=== PATIENT | female | born 1950 | race Caucasian/White ===

== ENCOUNTER 2017-11-15 09:40 | Day surgery (SDC) | payer MEDICARE ==
[2017-11-15 10:54] LABS: ADD MAN DIFF? NO
[2017-11-15 10:57] LABS: BASOPHILS % 0.4 % (0.0-2.0); EOSINOPHILS # 0.4 10^3/ul (0.0-0.5); EOSINOPHILS % 3.7 % (0.0-7.0); HEMATOCRIT 31.9 % (37.0-47.0); HEMOGLOBIN 10.1 g/dl (12.0-16.0); LYMPHOCYTES # 2.3 10^3/ul (0.8-2.9); MEAN CORPUSCULAR HEMOGLOBIN 28.6 pg (29.0-33.0); MEAN CORPUSCULAR HGB CONC 31.7 g/dl (32.0-37.0); MEAN CORPUSCULAR VOLUME 90.4 fl (82.0-101.0); MEAN PLATELET VOLUME 9.7 fl (7.4-10.4); MONOCYTE # 0.6 10^3/ul (0.3-0.9); MONOCYTES % 5.9 % (0.0-11.0); NEUTROPHIL # 6.6 10^3/ul (1.6-7.5); NEUTROPHILS % 66.8 % (39.0-77.0); PLATELET COUNT 396 10^3/UL (140-415); RED BLOOD COUNT 3.53 10^6/ul (4.20-5.40); RED CELL DISTRIBUTION WIDTH 17.3 % (11.5-14.5)
[2017-11-15 10:57] LABS: WHITE BLOOD COUNT 9.9 10^3/ul (4.8-10.8)
[2017-11-15 11:27] LABS: ALANINE AMINOTRANSFERASE 40 IU/L (13-69); ALBUMIN 4.1 g/dl (3.3-4.9); ALBUMIN/GLOBULIN RATIO 1.07; ALKALINE PHOSPHATASE 105 IU/L (42-121); ANION GAP 17 (8-16); ASPARTATE AMINO TRANSFERASE 27 IU/L (15-46); CARBON DIOXIDE 22 mmol/L (21-31); CHLORIDE 107 mmol/L (97-110); GLUCOSE 91 mg/dl (70-220); TOTAL PROTEIN 7.9 g/dl (6.1-8.1)
[2017-11-15 11:30] LABS: BLOOD UREA NITROGEN 21 mg/dl (7-20); CREATININE 1.57 mg/dl (0.44-1.00); INR 1.73; POTASSIUM 5.3 mmol/L (3.5-5.1); PROTIME 20.6 Sec (11.9-14.9); PT RATIO 1.6; SODIUM 141 mmol/L (135-144)
[2017-11-15 11:31] LABS: PARTIAL THROMBOPLASTIN TIME 34.5 Sec (25.0-35.0)
[2017-11-15] MEDS ORDERED: ETOMIDATE 20 MG INJ (11:41)
[2017-11-15] MEDS ORDERED: LIDOCAINE 100 MG SYRINGE (11:41)
[2017-11-15] MEDS ORDERED: DIPHENHYDRAMINE 50 MG INJ (11:42)
[2017-11-15] MEDS ORDERED: MIDAZOLAM 1 MG/ML 2 ML INJ (11:42)
[2017-11-15] MEDS ORDERED: FENTAnyl 50 MCG/ML VIAL (11:42)
[2017-11-15] MEDS ORDERED: HEPARIN 1000 UNITS/ML 10 ML INJ (11:42)
[2017-11-15] MEDS ORDERED: METHYLPREDNISOLONE 125 MG INJ (11:43)
== END 2017-11-15 12:00 | disposition home or self-care (01) ==
LOC: SDS 09:40
DX: L97.519 Non-pressure chronic ulcer of other part of right foot with unspecified severity (principal); Z53.9 Procedure and treatment not carried out, unspecified reason
CPT/HCPCS: 80053; 82962; 85025; 85610; 85730

== ENCOUNTER 2017-11-22 06:01 | Day surgery (SDC) | payer MEDICARE ==
[2017-11-22 06:49] LABS: ADD MAN DIFF? NO
[2017-11-22 06:56] LABS: BASOPHILS % 0.2 % (0.0-2.0); HEMATOCRIT 31.9 % (37.0-47.0); HEMOGLOBIN 9.9 g/dl (12.0-16.0); LYMPHOCYTES # 1.7 10^3/ul (0.8-2.9); MEAN CORPUSCULAR HEMOGLOBIN 28.5 pg (29.0-33.0); MEAN CORPUSCULAR VOLUME 91.9 fl (82.0-101.0); MEAN PLATELET VOLUME 9.6 fl (7.4-10.4); MONOCYTE # 0.1 10^3/ul (0.3-0.9); NEUTROPHIL # 9.6 10^3/ul (1.6-7.5); NEUTROPHILS % 83.2 % (39.0-77.0); PLATELET COUNT 402 10^3/UL (140-415); RED BLOOD COUNT 3.47 10^6/ul (4.20-5.40); RED CELL DISTRIBUTION WIDTH 17.4 % (11.5-14.5)
[2017-11-22] MEDS ORDERED: DIPHENHYDRAMINE 50 MG CAP PO (07:00)
[2017-11-22] MEDS ORDERED: predniSONE 50 MG TAB PO (07:00)
[2017-11-22 07:14] LABS: HOLD TRANSMISSIONS 1; INR 1.07; PT RATIO 1.1
[2017-11-22 07:17] LABS: WHITE BLOOD COUNT 11.5 10^3/ul (4.8-10.8)
[2017-11-22 07:18] LABS: ALANINE AMINOTRANSFERASE 30 IU/L (13-69); ALBUMIN 3.9 g/dl (3.3-4.9); ALBUMIN/GLOBULIN RATIO 0.95; ALKALINE PHOSPHATASE 99 IU/L (42-121); ANION GAP 20 (8-16); ASPARTATE AMINO TRANSFERASE 29 IU/L (15-46); CARBON DIOXIDE 19 mmol/L (21-31); CHLORIDE 105 mmol/L (97-110); GLUCOSE 236 mg/dl (70-220)
[2017-11-22] MEDS ORDERED: HYDROCORTISONE 100 MG INJ ×2 (07:23)
[2017-11-22 07:34] LABS: BLOOD UREA NITROGEN 32 mg/dl (7-20); POTASSIUM 5.7 mmol/L (3.5-5.1); SODIUM 138 mmol/L (135-144)
[2017-11-22] MEDS ORDERED: MIDAZOLAM 1 MG/ML 2 ML INJ (07:39)
[2017-11-22] MEDS ORDERED: LIDOCAINE 1% (MDV) 20 ML INJ (07:39)
[2017-11-22] MEDS ORDERED: FENTAnyl 50 MCG/ML VIAL (07:39)
[2017-11-22] MEDS ORDERED: IODIXANOL LOCM 100 ML BTL (07:39)
== END 2017-11-22 13:00 | disposition home or self-care (01) ==
LOC: CCL 06:01 → SDS 06:01 → CCL 13:00
DX: L97.419 Non-pressure chronic ulcer of right heel and midfoot with unspecified severity (principal); E11.9 Type 2 diabetes mellitus without complications; I73.9 Peripheral vascular disease, unspecified
CPT/HCPCS: 36200; 75630; 76937; 80053; 82962; 85025; 85610; 85730

== ENCOUNTER 2017-12-25 14:16 | Inpatient (IN) | payer MEDICARE, MEDICAID ==
[2017-12-26] MEDS: SOD CHLORIDE 0.9% 500 ML IV (02:14)
[2017-12-26 02:29] LABS: ADD MAN DIFF? NO
[2017-12-26 02:32] LABS: WHITE BLOOD COUNT 7.3 10^3/ul (4.8-10.8)
[2017-12-26 02:32] LABS: BASOPHILS % 0.4 % (0.0-2.0); EOSINOPHILS # 0.4 10^3/ul (0.0-0.5); EOSINOPHILS % 4.9 % (0.0-7.0); HEMATOCRIT 30.5 % (37.0-47.0); HEMOGLOBIN 9.8 g/dl (12.0-16.0); LYMPHOCYTES # 2.4 10^3/ul (0.8-2.9); LYMPHOCYTES % 33.3 % (15.0-51.0); MEAN CORPUSCULAR HEMOGLOBIN 28.9 pg (29.0-33.0); MEAN CORPUSCULAR HGB CONC 32.1 g/dl (32.0-37.0); MEAN PLATELET VOLUME 10.6 fl (7.4-10.4); MONOCYTE # 0.7 10^3/ul (0.3-0.9); MONOCYTES % 9.7 % (0.0-11.0); NEUTROPHIL # 3.8 10^3/ul (1.6-7.5); NEUTROPHILS % 51.3 % (39.0-77.0); PLATELET COUNT 333 10^3/UL (140-415); RED BLOOD COUNT 3.39 10^6/ul (4.20-5.40); RED CELL DISTRIBUTION WIDTH 16.5 % (11.5-14.5)
[2017-12-26 02:50] LABS: ANION GAP 14 (8-16); BLOOD UREA NITROGEN 30 mg/dl (7-20); CALCIUM 9.9 mg/dl (8.4-10.2); CARBON DIOXIDE 31 mmol/L (21-31); CHLORIDE 104 mmol/L (97-110); CREATININE 1.56 mg/dl (0.44-1.00); GLUCOSE 144 mg/dl (70-220); POTASSIUM 4.4 mmol/L (3.5-5.1); SODIUM 145 mmol/L (135-144)
[2017-12-26 03:48] LABS: INR 1.52; PROTIME 18.6 Sec (11.9-14.9); PT RATIO 1.5
[2017-12-26 03:49] LABS: PARTIAL THROMBOPLASTIN TIME 41.1 Sec (25.0-35.0)
[2017-12-26] MEDS ORDERED: GLUCOSE GEL 15 GRAM TUBE BUCCAL (05:30)
[2017-12-26] MEDS ORDERED: ONDANSETRON 4 MG TAB PO (05:30)
[2017-12-26] MEDS ORDERED: BISACODYL (EC) 5 MG TAB PO (05:30)
[2017-12-26] MEDS ORDERED: DOCUSATE SODIUM 100 MG CAP PO (05:30)
[2017-12-26] MEDS ORDERED: NACL 0.9% 3 ML SYG IV (05:30)
[2017-12-26] MEDS ORDERED: GLUCAGON 1 MG INJ IM (05:30)
[2017-12-26] MEDS ORDERED: GLUCOSE GEL 15 GRAM TUBE PO ×2 (05:30)
[2017-12-26] MEDS ORDERED: DEXTROSE 50% 50 ML SYRINGE IV ×2 (05:30)
[2017-12-26 06:40] LABS: INR 1.56; PT RATIO 1.5
[2017-12-26] MEDS: LEVOTHYROXINE 25 MCG TAB PO (09:42)
[2017-12-26] MEDS: CITALOPRAM 20 MG TAB PO (09:42)
[2017-12-26] MEDS: NIFEdipine (XL) 60 MG TAB PO (09:43)
[2017-12-26] MEDS: METOPROLOL 25 MG TAB PO ×2 (09:43→20:53)
[2017-12-26] MEDS: HYDROCHLOROTHIAZIDE 25 MG TAB PO (09:43)
[2017-12-26] MEDS ORDERED: VANCOMYCIN IV PER PHARMACY XX (10:30)
[2017-12-26] MEDS: INSULIN ASPART [NOVOLOG] 3 ML PEN SC ×3 (12:06→20:55)
[2017-12-26] MEDS: VANCOMYCIN 2 GM in SOD CHLORIDE 0.9% 500 ML IVPB (13:53)
[2017-12-26] MEDS: ATORVASTATIN 80 MG TAB PO (20:53)
[2017-12-26] MEDS: INSULIN GLARGINE [LANtus] 3 ML PEN SC (20:54)
[2017-12-27] MEDS: ACCU-CHEK XX (01:30)
[2017-12-27 06:11] LABS: ADD MAN DIFF? NO
[2017-12-27 06:20] LABS: BASOPHILS % 0.5 % (0.0-2.0); EOSINOPHILS # 0.4 10^3/ul (0.0-0.5); EOSINOPHILS % 5.7 % (0.0-7.0); HEMATOCRIT 29.2 % (37.0-47.0); HEMOGLOBIN 9.4 g/dl (12.0-16.0); LYMPHOCYTES # 2.2 10^3/ul (0.8-2.9); LYMPHOCYTES % 36.1 % (15.0-51.0); MEAN CORPUSCULAR HEMOGLOBIN 28.9 pg (29.0-33.0); MEAN CORPUSCULAR HGB CONC 32.2 g/dl (32.0-37.0); MEAN CORPUSCULAR VOLUME 89.8 fl (82.0-101.0); MEAN PLATELET VOLUME 10.2 fl (7.4-10.4); MONOCYTE # 0.6 10^3/ul (0.3-0.9); NEUTROPHILS % 48.2 % (39.0-77.0); NUCLEATED RED BLOOD CELLS% 0.7 /100WBC (0.0-0.0); PLATELET COUNT 309 10^3/UL (140-415); RED BLOOD COUNT 3.25 10^6/ul (4.20-5.40)
[2017-12-27 06:20] LABS: WHITE BLOOD COUNT 6.1 10^3/ul (4.8-10.8)
[2017-12-27 06:43] LABS: INR 1.36; PT RATIO 1.3
[2017-12-27 06:46] LABS: ALANINE AMINOTRANSFERASE 25 IU/L (13-69); ALBUMIN 3.2 g/dl (3.3-4.9); ALBUMIN/GLOBULIN RATIO 0.96; ALKALINE PHOSPHATASE 70 IU/L (42-121); ANION GAP 10 (8-16); ASPARTATE AMINO TRANSFERASE 27 IU/L (15-46); BLOOD UREA NITROGEN 24 mg/dl (7-20); CALCIUM 9.1 mg/dl (8.4-10.2); CARBON DIOXIDE 30 mmol/L (21-31); CHLORIDE 106 mmol/L (97-110); CHOL/HDL RATIO 3.5 RATIO; CHOLESTEROL 133 mg/dl (100-200); CREATININE 1.07 mg/dl (0.44-1.00); GLUCOSE 124 mg/dl (70-220); HDL CHOLESTEROL 38 mg/dl (35-98); LDL CHOLESTEROL,CALCULATED 81 mg/dl; MAGNESIUM 1.7 mg/dl (1.7-2.5); POTASSIUM 4.1 mmol/L (3.5-5.1); SODIUM 142 mmol/L (135-144); TOTAL PROTEIN 6.5 g/dl (6.1-8.1); TRIGLYCERIDES 68 mg/dl (0-149)
[2017-12-27] MEDS: LEVOTHYROXINE 25 MCG TAB PO (06:49)
[2017-12-27 07:39] LABS: HEMOGLOBIN A1C 7.1 % (0-5.9)
[2017-12-27] MEDS: METOPROLOL 25 MG TAB PO ×2 (08:13→20:55)
[2017-12-27] MEDS: NIFEdipine (XL) 60 MG TAB PO (08:13)
[2017-12-27] MEDS: HYDROCHLOROTHIAZIDE 25 MG TAB PO (08:13)
[2017-12-27] MEDS: CITALOPRAM 20 MG TAB PO (08:13)
[2017-12-27] MEDS: INSULIN ASPART [NOVOLOG] 3 ML PEN SC ×4 (08:17→20:56)
[2017-12-27] MEDS: VANCOMYCIN 1.5 GM in SOD CHLORIDE 0.9% 250 ML IVPB (12:05)
[2017-12-27] MEDS: ATORVASTATIN 80 MG TAB PO (20:55)
[2017-12-27] MEDS: INSULIN GLARGINE [LANtus] 3 ML PEN SC (20:57)
[2017-12-27] MEDS: MEROPENEM 500MG/50 ML (PMX) 50 ML IVPB (20:57)
[2017-12-28] MEDS: ACCU-CHEK XX (02:00)
[2017-12-28 06:06] LABS: ADD MAN DIFF? NO
[2017-12-28 06:10] LABS: BASOPHILS % 0.4 % (0.0-2.0); EOSINOPHILS # 0.4 10^3/ul (0.0-0.5); EOSINOPHILS % 4.9 % (0.0-7.0); HEMATOCRIT 30.6 % (37.0-47.0); HEMOGLOBIN 9.8 g/dl (12.0-16.0); LYMPHOCYTES # 2.4 10^3/ul (0.8-2.9); LYMPHOCYTES % 34.3 % (15.0-51.0); MEAN CORPUSCULAR HEMOGLOBIN 28.7 pg (29.0-33.0); MEAN CORPUSCULAR VOLUME 89.7 fl (82.0-101.0); MEAN PLATELET VOLUME 10.2 fl (7.4-10.4); MONOCYTE # 0.6 10^3/ul (0.3-0.9); MONOCYTES % 8.7 % (0.0-11.0); NEUTROPHIL # 3.6 10^3/ul (1.6-7.5); NEUTROPHILS % 51.4 % (39.0-77.0); PLATELET COUNT 346 10^3/UL (140-415); RED BLOOD COUNT 3.41 10^6/ul (4.20-5.40); RED CELL DISTRIBUTION WIDTH 16.1 % (11.5-14.5)
[2017-12-28 06:10] LABS: WHITE BLOOD COUNT 7.1 10^3/ul (4.8-10.8)
[2017-12-28 06:43] LABS: INR 1.12; PROTIME 14.6 Sec (11.9-14.9); PT RATIO 1.1
[2017-12-28] MEDS: LEVOTHYROXINE 25 MCG TAB PO (07:08)
[2017-12-28 07:12] LABS: ANION GAP 14 (8-16); BLOOD UREA NITROGEN 26 mg/dl (7-20); CARBON DIOXIDE 28 mmol/L (21-31); CHLORIDE 105 mmol/L (97-110); CREATININE 1.17 mg/dl (0.44-1.00); GLUCOSE 139 mg/dl (70-220); POTASSIUM 4.1 mmol/L (3.5-5.1); SODIUM 143 mmol/L (135-144)
[2017-12-28] MEDS: HYDROCHLOROTHIAZIDE 25 MG TAB PO (08:14)
[2017-12-28] MEDS: CITALOPRAM 20 MG TAB PO (08:14)
[2017-12-28] MEDS: MEROPENEM 500MG/50 ML (PMX) 50 ML IVPB ×2 (08:14→20:37)
[2017-12-28] MEDS: LOSARTAN 50 MG TAB PO (08:15)
[2017-12-28] MEDS: NIFEdipine (XL) 30 MG TAB PO (08:15)
[2017-12-28] MEDS: METOPROLOL 25 MG TAB PO ×2 (08:15→20:38)
[2017-12-28] MEDS: INSULIN ASPART [NOVOLOG] 3 ML PEN SC ×4 (08:21→20:40)
[2017-12-28] MEDS: VANCOMYCIN 1.5 GM in SOD CHLORIDE 0.9% 250 ML IVPB (14:11)
[2017-12-28] MEDS: DIPHENHYDRAMINE 25 MG CAP PO (15:04)
[2017-12-28] MEDS ORDERED: VITAMIN A & D 5 GM OINT PACKET TOP (18:26)
[2017-12-28] MEDS: ATORVASTATIN 80 MG TAB PO (20:37)
[2017-12-28] MEDS: INSULIN GLARGINE [LANtus] 3 ML PEN SC (20:40)
[2017-12-28] MEDS: DIPHENHYDRAMINE 50 MG CAP PO (21:01)
[2017-12-29] MEDS: ACCU-CHEK XX (03:00)
[2017-12-29] MEDS: LEVOTHYROXINE 100 MCG TAB PO (06:11)
[2017-12-29 06:12] LABS: ADD MAN DIFF? NO
[2017-12-29 06:19] LABS: BASOPHILS % 0.5 % (0.0-2.0); EOSINOPHILS # 0.4 10^3/ul (0.0-0.5); HEMATOCRIT 29.4 % (37.0-47.0); HEMOGLOBIN 9.4 g/dl (12.0-16.0); LYMPHOCYTES # 2.1 10^3/ul (0.8-2.9); LYMPHOCYTES % 34.2 % (15.0-51.0); MEAN CORPUSCULAR HEMOGLOBIN 28.7 pg (29.0-33.0); MEAN CORPUSCULAR VOLUME 89.9 fl (82.0-101.0); MEAN PLATELET VOLUME 10.1 fl (7.4-10.4); MONOCYTE # 0.7 10^3/ul (0.3-0.9); MONOCYTES % 10.8 % (0.0-11.0); NEUTROPHIL # 2.9 10^3/ul (1.6-7.5); NEUTROPHILS % 47.8 % (39.0-77.0); PLATELET COUNT 340 10^3/UL (140-415); RED BLOOD COUNT 3.27 10^6/ul (4.20-5.40)
[2017-12-29 06:43] LABS: ANION GAP 10 (8-16); BLOOD UREA NITROGEN 32 mg/dl (7-20); CALCIUM 8.7 mg/dl (8.4-10.2); CARBON DIOXIDE 30 mmol/L (21-31); CHLORIDE 105 mmol/L (97-110); CREATININE 1.23 mg/dl (0.44-1.00); GLUCOSE 146 mg/dl (70-220); POTASSIUM 4.2 mmol/L (3.5-5.1); SODIUM 141 mmol/L (135-144)
[2017-12-29 07:07] LABS: INR 1.02; PROTIME 13.5 Sec (11.9-14.9); PT RATIO 1.1
[2017-12-29] MEDS: MEROPENEM 500MG/50 ML (PMX) 50 ML IVPB ×2 (07:58→21:03)
[2017-12-29] MEDS: INSULIN ASPART [NOVOLOG] 3 ML PEN SC ×4 (07:58→21:02)
[2017-12-29] MEDS: HYDROCHLOROTHIAZIDE 25 MG TAB PO (07:59)
[2017-12-29] MEDS: LOSARTAN 50 MG TAB PO ×2 (07:59→20:58)
[2017-12-29] MEDS: NIFEdipine (XL) 30 MG TAB PO (07:59)
[2017-12-29] MEDS: CITALOPRAM 20 MG TAB PO (08:00)
[2017-12-29] MEDS: METOPROLOL 25 MG TAB PO ×2 (08:00→20:58)
[2017-12-29] MEDS: LACTATED RINGER'S 500 ML IV (11:59)
[2017-12-29 12:24] LABS: IRON 41 ug/dl (35-150)
[2017-12-29 12:33] LABS: % IRON SATURATION 13 % SAT (22-52); TOTAL IRON BINDING CAPACITY 328 ug/dl (241-421)
[2017-12-29 12:34] LABS: VANCOMYCIN,TROUGH 15.7 ug/ml (10.0-20.0)
[2017-12-29 13:05] LABS: FERRITIN 12.9 ng/ml (11.1-264.0)
[2017-12-29] MEDS: VANCOMYCIN 1.5 GM in SOD CHLORIDE 0.9% 250 ML IVPB (14:04)
[2017-12-29] MEDS: metFORMIN 500 MG TAB PO (17:29)
[2017-12-29] MEDS: ATORVASTATIN 80 MG TAB PO (20:57)
[2017-12-29] MEDS: INSULIN GLARGINE [LANtus] 3 ML PEN SC (21:03)
[2017-12-30] MEDS: DIPHENHYDRAMINE 50 MG CAP PO (01:37)
[2017-12-30] MEDS: ACCU-CHEK XX (01:37)
[2017-12-30 05:36] LABS: ADD MAN DIFF? NO
[2017-12-30 05:39] LABS: WHITE BLOOD COUNT 6.1 10^3/ul (4.8-10.8)
[2017-12-30 05:39] LABS: BASOPHILS % 0.5 % (0.0-2.0); EOSINOPHILS # 0.3 10^3/ul (0.0-0.5); EOSINOPHILS % 5.1 % (0.0-7.0); HEMATOCRIT 29.9 % (37.0-47.0); HEMOGLOBIN 9.6 g/dl (12.0-16.0); LYMPHOCYTES # 2.1 10^3/ul (0.8-2.9); LYMPHOCYTES % 34.3 % (15.0-51.0); MEAN CORPUSCULAR HEMOGLOBIN 28.7 pg (29.0-33.0); MEAN CORPUSCULAR HGB CONC 32.1 g/dl (32.0-37.0); MEAN CORPUSCULAR VOLUME 89.5 fl (82.0-101.0); MEAN PLATELET VOLUME 9.7 fl (7.4-10.4); MONOCYTE # 0.8 10^3/ul (0.3-0.9); MONOCYTES % 13.4 % (0.0-11.0); NEUTROPHIL # 2.8 10^3/ul (1.6-7.5); NEUTROPHILS % 46.4 % (39.0-77.0); PLATELET COUNT 328 10^3/UL (140-415); RED BLOOD COUNT 3.34 10^6/ul (4.20-5.40); RED CELL DISTRIBUTION WIDTH 15.9 % (11.5-14.5)
[2017-12-30 05:57] LABS: INR 0.93; PROTIME 12.6 Sec (11.9-14.9)
[2017-12-30 06:09] LABS: ANION GAP 13 (8-16); BLOOD UREA NITROGEN 28 mg/dl (7-20); CALCIUM 8.8 mg/dl (8.4-10.2); CARBON DIOXIDE 30 mmol/L (21-31); CHLORIDE 106 mmol/L (97-110); CREATININE 1.12 mg/dl (0.44-1.00); GLUCOSE 87 mg/dl (70-220); POTASSIUM 3.8 mmol/L (3.5-5.1); SODIUM 145 mmol/L (135-144)
[2017-12-30] MEDS: LEVOTHYROXINE 100 MCG TAB PO (06:38)
[2017-12-30] MEDS: HYDROCODONE/APAP (5/325) TAB PO ×2 (06:39→12:28)
[2017-12-30] MEDS: INSULIN ASPART [NOVOLOG] 3 ML PEN SC ×4 (08:07→20:39)
[2017-12-30] MEDS: MEROPENEM 500MG/50 ML (PMX) 50 ML IVPB ×2 (08:08→20:34)
[2017-12-30] MEDS: METOPROLOL 25 MG TAB PO ×2 (08:09→20:40)
[2017-12-30] MEDS: HYDROCHLOROTHIAZIDE 12.5 MG CAP PO (08:11)
[2017-12-30] MEDS: CITALOPRAM 20 MG TAB PO (08:11)
[2017-12-30] MEDS: LOSARTAN 50 MG TAB PO ×2 (08:11→20:40)
[2017-12-30] MEDS: VANCOMYCIN 1.5 GM in SOD CHLORIDE 0.9% 250 ML IVPB (12:56)
[2017-12-30] MEDS: metFORMIN 500 MG TAB PO (17:33)
[2017-12-30] MEDS: INSULIN GLARGINE [LANtus] 3 ML PEN SC (20:39)
[2017-12-30] MEDS: ATORVASTATIN 80 MG TAB PO (20:40)
[2017-12-31] MEDS: ACCU-CHEK XX (01:40)
[2017-12-31] MEDS: ACETAMINOPHEN 325 MG TAB PO (01:48)
[2017-12-31] MEDS: hydrALAzine 20 MG INJ IV (02:04)
[2017-12-31 05:39] LABS: ADD MAN DIFF? NO
[2017-12-31 05:43] LABS: BASOPHILS % 0.2 % (0.0-2.0); EOSINOPHILS # 0.3 10^3/ul (0.0-0.5); EOSINOPHILS % 4.8 % (0.0-7.0); HEMATOCRIT 28.8 % (37.0-47.0); HEMOGLOBIN 9.3 g/dl (12.0-16.0); LYMPHOCYTES # 1.3 10^3/ul (0.8-2.9); LYMPHOCYTES % 24.6 % (15.0-51.0); MEAN CORPUSCULAR HEMOGLOBIN 28.7 pg (29.0-33.0); MEAN CORPUSCULAR HGB CONC 32.3 g/dl (32.0-37.0); MEAN CORPUSCULAR VOLUME 88.9 fl (82.0-101.0); MEAN PLATELET VOLUME 10.1 fl (7.4-10.4); MONOCYTE # 0.7 10^3/ul (0.3-0.9); MONOCYTES % 13.6 % (0.0-11.0); NEUTROPHILS % 56.6 % (39.0-77.0); PLATELET COUNT 312 10^3/UL (140-415); RED BLOOD COUNT 3.24 10^6/ul (4.20-5.40); RED CELL DISTRIBUTION WIDTH 16.1 % (11.5-14.5)
[2017-12-31 05:43] LABS: WHITE BLOOD COUNT 5.4 10^3/ul (4.8-10.8)
[2017-12-31] MEDS: LEVOTHYROXINE 100 MCG TAB PO (05:55)
[2017-12-31 06:01] LABS: INR 0.95; PROTIME 12.8 Sec (11.9-14.9)
[2017-12-31 06:41] LABS: ANION GAP 12 (8-16); BLOOD UREA NITROGEN 31 mg/dl (7-20); CALCIUM 8.6 mg/dl (8.4-10.2); CARBON DIOXIDE 28 mmol/L (21-31); CHLORIDE 104 mmol/L (97-110); CREATININE 1.16 mg/dl (0.44-1.00); GLUCOSE 106 mg/dl (70-220); SODIUM 140 mmol/L (135-144)
[2017-12-31] MEDS: INSULIN ASPART [NOVOLOG] 3 ML PEN SC ×4 (07:48→20:31)
[2017-12-31] MEDS: METOPROLOL 25 MG TAB PO ×2 (08:27→20:19)
[2017-12-31] MEDS: CITALOPRAM 20 MG TAB PO (08:27)
[2017-12-31] MEDS: HYDROCHLOROTHIAZIDE 12.5 MG CAP PO (08:28)
[2017-12-31] MEDS: MEROPENEM 500MG/50 ML (PMX) 50 ML IVPB ×2 (09:30→20:18)
[2017-12-31] MEDS: LOSARTAN 50 MG TAB PO ×2 (09:34→20:19)
[2017-12-31] MEDS: HEPARIN 5,000 UNIT/0.5 ML VIAL SC ×2 (11:45→20:27)
[2017-12-31] MEDS: VANCOMYCIN 1.5 GM in SOD CHLORIDE 0.9% 250 ML IVPB (12:38)
[2017-12-31] MEDS: metFORMIN 500 MG TAB PO (17:29)
[2017-12-31] MEDS: ATORVASTATIN 80 MG TAB PO (20:19)
[2017-12-31] MEDS: INSULIN GLARGINE [LANtus] 3 ML PEN SC (20:31)
[2018-01-01] MEDS: ACCU-CHEK XX (02:10)
[2018-01-01 06:17] LABS: ADD MAN DIFF? NO
[2018-01-01] MEDS: DIPHENHYDRAMINE 50 MG CAP PO ×2 (06:18→20:58)
[2018-01-01] MEDS: LEVOTHYROXINE 100 MCG TAB PO (06:18)
[2018-01-01 06:28] LABS: BASOPHILS % 0.2 % (0.0-2.0); EOSINOPHILS # 0.2 10^3/ul (0.0-0.5); HEMATOCRIT 29.7 % (37.0-47.0); HEMOGLOBIN 9.3 g/dl (12.0-16.0); LYMPHOCYTES # 2.1 10^3/ul (0.8-2.9); LYMPHOCYTES % 43.7 % (15.0-51.0); MEAN CORPUSCULAR HEMOGLOBIN 28.1 pg (29.0-33.0); MEAN CORPUSCULAR HGB CONC 31.3 g/dl (32.0-37.0); MEAN CORPUSCULAR VOLUME 89.7 fl (82.0-101.0); MONOCYTE # 0.7 10^3/ul (0.3-0.9); MONOCYTES % 14.1 % (0.0-11.0); NEUTROPHIL # 1.8 10^3/ul (1.6-7.5); NEUTROPHILS % 36.6 % (39.0-77.0); PLATELET COUNT 278 10^3/UL (140-415); RED BLOOD COUNT 3.31 10^6/ul (4.20-5.40); RED CELL DISTRIBUTION WIDTH 16.1 % (11.5-14.5)
[2018-01-01 06:28] LABS: WHITE BLOOD COUNT 4.8 10^3/ul (4.8-10.8)
[2018-01-01 06:43] LABS: INR 0.96; PROTIME 12.9 Sec (11.9-14.9)
[2018-01-01 06:47] LABS: ANION GAP 12 (8-16); BLOOD UREA NITROGEN 32 mg/dl (7-20); CALCIUM 8.5 mg/dl (8.4-10.2); CARBON DIOXIDE 28 mmol/L (21-31); CHLORIDE 106 mmol/L (97-110); CREATININE 1.13 mg/dl (0.44-1.00); GLUCOSE 103 mg/dl (70-220); POTASSIUM 3.9 mmol/L (3.5-5.1); SODIUM 142 mmol/L (135-144)
[2018-01-01] MEDS: INSULIN ASPART [NOVOLOG] 3 ML PEN SC ×4 (08:15→21:32)
[2018-01-01] MEDS: METOPROLOL 25 MG TAB PO ×2 (09:00→20:59)
[2018-01-01] MEDS: LOSARTAN 50 MG TAB PO ×3 (09:00→20:59)
[2018-01-01] MEDS: CITALOPRAM 20 MG TAB PO (09:00)
[2018-01-01] MEDS: MEROPENEM 500MG/50 ML (PMX) 50 ML IVPB ×2 (09:00→22:31)
[2018-01-01] MEDS: HYDROCHLOROTHIAZIDE 12.5 MG CAP PO ×2 (09:00→13:49)
[2018-01-01 13:13] LABS: VANCOMYCIN,TROUGH 15.6 ug/ml (10.0-20.0)
[2018-01-01] MEDS: VANCOMYCIN 1.5 GM in SOD CHLORIDE 0.9% 250 ML IVPB (13:44)
[2018-01-01] MEDS: APIXABAN 5 MG TABLET PO ×2 (13:48→23:01)
[2018-01-01] MEDS: metFORMIN 500 MG TAB PO (18:44)
[2018-01-01] MEDS: ATORVASTATIN 80 MG TAB PO (20:58)
[2018-01-01] MEDS: ACETAMINOPHEN 325 MG TAB PO (21:00)
[2018-01-01] MEDS: INSULIN GLARGINE [LANtus] 3 ML PEN SC (21:31)
[2018-01-02] MEDS: ACCU-CHEK XX (02:50)
[2018-01-02] MEDS: DIPHENHYDRAMINE 50 MG CAP PO ×2 (06:21→21:09)
[2018-01-02] MEDS: LEVOTHYROXINE 100 MCG TAB PO (06:21)
[2018-01-02] MEDS: INSULIN ASPART [NOVOLOG] 3 ML PEN SC ×4 (08:15→21:17)
[2018-01-02] MEDS: ACETAMINOPHEN 325 MG TAB PO (09:33)
[2018-01-02] MEDS: CITALOPRAM 20 MG TAB PO (09:33)
[2018-01-02] MEDS: METOPROLOL 25 MG TAB PO ×2 (09:34→21:11)
[2018-01-02] MEDS: APIXABAN 5 MG TABLET PO ×2 (09:34→21:09)
[2018-01-02] MEDS: LOSARTAN 50 MG TAB PO ×2 (09:35→21:09)
[2018-01-02] MEDS: MEROPENEM 500MG/50 ML (PMX) 50 ML IVPB ×2 (09:35→21:09)
[2018-01-02] MEDS: HYDROCHLOROTHIAZIDE 12.5 MG CAP PO (09:35)
[2018-01-02] MEDS: VANCOMYCIN 1.5 GM in SOD CHLORIDE 0.9% 250 ML IVPB (12:43)
[2018-01-02] MEDS: metFORMIN 500 MG TAB PO (17:35)
[2018-01-02] MEDS: ATORVASTATIN 80 MG TAB PO (21:09)
[2018-01-02] MEDS: INSULIN GLARGINE [LANtus] 3 ML PEN SC (21:16)
[2018-01-03] MEDS: ACCU-CHEK XX (02:01)
[2018-01-03 05:36] LABS: ADD MAN DIFF? NO
[2018-01-03 05:44] LABS: WHITE BLOOD COUNT 4.7 10^3/ul (4.8-10.8)
[2018-01-03 05:44] LABS: BASOPHILS % 0.2 % (0.0-2.0); EOSINOPHILS # 0.3 10^3/ul (0.0-0.5); EOSINOPHILS % 6.4 % (0.0-7.0); HEMATOCRIT 29.3 % (37.0-47.0); HEMOGLOBIN 9.4 g/dl (12.0-16.0); LYMPHOCYTES # 1.9 10^3/ul (0.8-2.9); MEAN CORPUSCULAR HEMOGLOBIN 28.6 pg (29.0-33.0); MEAN CORPUSCULAR HGB CONC 32.1 g/dl (32.0-37.0); MEAN CORPUSCULAR VOLUME 89.1 fl (82.0-101.0); MEAN PLATELET VOLUME 10.1 fl (7.4-10.4); MONOCYTE # 0.4 10^3/ul (0.3-0.9); MONOCYTES % 9.4 % (0.0-11.0); NEUTROPHILS % 43.6 % (39.0-77.0); PLATELET COUNT 264 10^3/UL (140-415); RED BLOOD COUNT 3.29 10^6/ul (4.20-5.40); RED CELL DISTRIBUTION WIDTH 15.9 % (11.5-14.5)
[2018-01-03] MEDS: LEVOTHYROXINE 100 MCG TAB PO (06:09)
[2018-01-03 06:23] LABS: ANION GAP 14 (8-16); BLOOD UREA NITROGEN 31 mg/dl (7-20); CALCIUM 8.6 mg/dl (8.4-10.2); CARBON DIOXIDE 28 mmol/L (21-31); CHLORIDE 105 mmol/L (97-110); CREATININE 0.98 mg/dl (0.44-1.00); GLUCOSE 97 mg/dl (70-220); POTASSIUM 4.2 mmol/L (3.5-5.1); SODIUM 143 mmol/L (135-144)
[2018-01-03] MEDS: INSULIN ASPART [NOVOLOG] 3 ML PEN SC ×4 (07:57→20:40)
[2018-01-03] MEDS: MEROPENEM 500MG/50 ML (PMX) 50 ML IVPB ×2 (08:14→20:34)
[2018-01-03] MEDS: HYDROCHLOROTHIAZIDE 12.5 MG CAP PO (08:15)
[2018-01-03] MEDS: APIXABAN 5 MG TABLET PO ×2 (08:15→20:35)
[2018-01-03] MEDS: CITALOPRAM 20 MG TAB PO (08:15)
[2018-01-03] MEDS: LOSARTAN 50 MG TAB PO ×2 (08:15→20:35)
[2018-01-03] MEDS: METOPROLOL 25 MG TAB PO ×2 (08:16→20:35)
[2018-01-03] MEDS: GUAIFENESIN/DM 5ML CUP PO (10:07)
[2018-01-03] MEDS: LIDOCAINE 1% (MPF) 5 ML VIAL SC (10:12)
[2018-01-03] MEDS: SOD CHLORIDE 0.9% 100 ML (12:30)
[2018-01-03] MEDS: VANCOMYCIN 1.5 GM in SOD CHLORIDE 0.9% 250 ML IVPB (14:23)
[2018-01-03] MEDS: metFORMIN 500 MG TAB PO (17:25)
[2018-01-03] MEDS: ATORVASTATIN 80 MG TAB PO (20:34)
[2018-01-03] MEDS: INSULIN GLARGINE [LANtus] 3 ML PEN SC (20:41)
[2018-01-03] MEDS: DIPHENHYDRAMINE 50 MG CAP PO (20:46)
[2018-01-04] MEDS: ACCU-CHEK XX (01:56)
[2018-01-04 05:52] LABS: ADD MAN DIFF? NO
[2018-01-04 05:54] LABS: WHITE BLOOD COUNT 4.7 10^3/ul (4.8-10.8)
[2018-01-04 05:54] LABS: BASOPHILS % 0.4 % (0.0-2.0); EOSINOPHILS # 0.2 10^3/ul (0.0-0.5); EOSINOPHILS % 4.5 % (0.0-7.0); HEMATOCRIT 29.3 % (37.0-47.0); HEMOGLOBIN 9.1 g/dl (12.0-16.0); LYMPHOCYTES # 2.1 10^3/ul (0.8-2.9); MEAN CORPUSCULAR HGB CONC 31.1 g/dl (32.0-37.0); MEAN CORPUSCULAR VOLUME 90.2 fl (82.0-101.0); MEAN PLATELET VOLUME 10.3 fl (7.4-10.4); MONOCYTE # 0.4 10^3/ul (0.3-0.9); MONOCYTES % 9.4 % (0.0-11.0); NEUTROPHIL # 1.9 10^3/ul (1.6-7.5); NEUTROPHILS % 40.5 % (39.0-77.0); PLATELET COUNT 231 10^3/UL (140-415); RED BLOOD COUNT 3.25 10^6/ul (4.20-5.40); RED CELL DISTRIBUTION WIDTH 15.9 % (11.5-14.5)
[2018-01-04 06:19] LABS: ANION GAP 16 (8-16); BLOOD UREA NITROGEN 42 mg/dl (7-20); CALCIUM 8.7 mg/dl (8.4-10.2); CARBON DIOXIDE 24 mmol/L (21-31); CHLORIDE 107 mmol/L (97-110); CREATININE 1.24 mg/dl (0.44-1.00); GLUCOSE 117 mg/dl (70-220); POTASSIUM 4.2 mmol/L (3.5-5.1); SODIUM 143 mmol/L (135-144)
[2018-01-04] MEDS: LEVOTHYROXINE 100 MCG TAB PO (06:39)
[2018-01-04] MEDS: INSULIN ASPART [NOVOLOG] 3 ML PEN SC ×4 (08:09→20:38)
[2018-01-04] MEDS: CITALOPRAM 20 MG TAB PO (08:27)
[2018-01-04] MEDS: APIXABAN 5 MG TABLET PO ×2 (08:27→20:34)
[2018-01-04] MEDS: LOSARTAN 50 MG TAB PO ×2 (08:28→20:33)
[2018-01-04] MEDS: HYDROCHLOROTHIAZIDE 12.5 MG CAP PO (08:28)
[2018-01-04] MEDS: METOPROLOL 25 MG TAB PO ×2 (08:29→20:33)
[2018-01-04] MEDS: MEROPENEM 500MG/50 ML (PMX) 50 ML IVPB ×2 (08:29→20:33)
[2018-01-04] MEDS: VANCOMYCIN 1.5 GM in SOD CHLORIDE 0.9% 250 ML IVPB (13:40)
[2018-01-04] MEDS: metFORMIN 500 MG TAB PO (17:51)
[2018-01-04] MEDS: ATORVASTATIN 80 MG TAB PO (20:33)
[2018-01-04] MEDS: INSULIN GLARGINE [LANtus] 3 ML PEN SC (20:38)
[2018-01-05] MEDS: ACCU-CHEK XX (02:51)
[2018-01-05] MEDS: DIPHENHYDRAMINE 50 MG CAP PO ×3 (02:51→22:23)
[2018-01-05] MEDS: LEVOTHYROXINE 100 MCG TAB PO (06:54)
[2018-01-05] MEDS: INSULIN ASPART [NOVOLOG] 3 ML PEN SC ×4 (08:15→20:31)
[2018-01-05] MEDS: CITALOPRAM 20 MG TAB PO (09:11)
[2018-01-05] MEDS: APIXABAN 5 MG TABLET PO ×2 (09:11→20:22)
[2018-01-05] MEDS: MEROPENEM 500MG/50 ML (PMX) 50 ML IVPB ×2 (09:11→20:20)
[2018-01-05] MEDS: HYDROCHLOROTHIAZIDE 12.5 MG CAP PO (09:17)
[2018-01-05] MEDS: METOPROLOL 25 MG TAB PO ×2 (09:17→20:22)
[2018-01-05] MEDS: LOSARTAN 50 MG TAB PO ×2 (09:17→20:23)
[2018-01-05] MEDS: ACETAMINOPHEN 325 MG TAB PO (14:13)
[2018-01-05] MEDS: VANCOMYCIN 1.5 GM in SOD CHLORIDE 0.9% 250 ML IVPB (14:13)
[2018-01-05] MEDS: metFORMIN 500 MG TAB PO (18:39)
[2018-01-05] MEDS: ATORVASTATIN 80 MG TAB PO (20:22)
[2018-01-05] MEDS: INSULIN GLARGINE [LANtus] 3 ML PEN SC (20:32)
[2018-01-06] MEDS: ACCU-CHEK XX (02:32)
[2018-01-06 06:14] LABS: ADD MAN DIFF? NO
[2018-01-06 06:23] LABS: BASOPHILS % 0.4 % (0.0-2.0); EOSINOPHILS # 0.3 10^3/ul (0.0-0.5); EOSINOPHILS % 5.9 % (0.0-7.0); HEMATOCRIT 30.7 % (37.0-47.0); HEMOGLOBIN 9.6 g/dl (12.0-16.0); LYMPHOCYTES # 2.8 10^3/ul (0.8-2.9); LYMPHOCYTES % 52.9 % (15.0-51.0); MEAN CORPUSCULAR HEMOGLOBIN 28.3 pg (29.0-33.0); MEAN CORPUSCULAR HGB CONC 31.3 g/dl (32.0-37.0); MEAN CORPUSCULAR VOLUME 90.6 fl (82.0-101.0); MEAN PLATELET VOLUME 10.4 fl (7.4-10.4); MONOCYTE # 0.4 10^3/ul (0.3-0.9); MONOCYTES % 8.4 % (0.0-11.0); NEUTROPHIL # 1.7 10^3/ul (1.6-7.5); NEUTROPHILS % 32.2 % (39.0-77.0); PLATELET COUNT 222 10^3/UL (140-415); RED BLOOD COUNT 3.39 10^6/ul (4.20-5.40); RED CELL DISTRIBUTION WIDTH 15.9 % (11.5-14.5)
[2018-01-06 06:23] LABS: WHITE BLOOD COUNT 5.2 10^3/ul (4.8-10.8)
[2018-01-06] MEDS: LEVOTHYROXINE 100 MCG TAB PO (06:33)
[2018-01-06 06:52] LABS: INR 1.05; PROTIME 13.8 Sec (11.9-14.9); PT RATIO 1.1
[2018-01-06 07:12] LABS: ALANINE AMINOTRANSFERASE 97 IU/L (13-69); ALBUMIN 3.3 g/dl (3.3-4.9); ALBUMIN/GLOBULIN RATIO 0.94; ALKALINE PHOSPHATASE 84 IU/L (42-121); ANION GAP 14 (8-16); ASPARTATE AMINO TRANSFERASE 91 IU/L (15-46); BILIRUBIN,INDIRECT 0.2 mg/dl (0-1.1); BILIRUBIN,TOTAL 0.2 mg/dl (0.2-1.3); BLOOD UREA NITROGEN 35 mg/dl (7-20); CALCIUM 8.9 mg/dl (8.4-10.2); CARBON DIOXIDE 27 mmol/L (21-31); CHLORIDE 108 mmol/L (97-110); CREATININE 1.05 mg/dl (0.44-1.00); GLUCOSE 114 mg/dl (70-220); POTASSIUM 4.4 mmol/L (3.5-5.1); SODIUM 145 mmol/L (135-144); TOTAL PROTEIN 6.8 g/dl (6.1-8.1)
[2018-01-06] MEDS: INSULIN ASPART [NOVOLOG] 3 ML PEN SC ×4 (08:07→20:14)
[2018-01-06] MEDS: MEROPENEM 500MG/50 ML (PMX) 50 ML IVPB ×2 (08:42→20:12)
[2018-01-06] MEDS: APIXABAN 5 MG TABLET PO ×2 (08:43→20:12)
[2018-01-06] MEDS: LOSARTAN 50 MG TAB PO ×2 (08:44→20:12)
[2018-01-06] MEDS: HYDROCHLOROTHIAZIDE 12.5 MG CAP PO (08:44)
[2018-01-06] MEDS: METOPROLOL 25 MG TAB PO ×2 (08:44→20:12)
[2018-01-06] MEDS: CITALOPRAM 20 MG TAB PO (08:44)
[2018-01-06 13:22] LABS: VANCOMYCIN,TROUGH 16.4 ug/ml (10.0-20.0)
[2018-01-06] MEDS: VANCOMYCIN 1.5 GM in SOD CHLORIDE 0.9% 250 ML IVPB (14:14)
[2018-01-06] MEDS: metFORMIN 500 MG TAB PO (17:45)
[2018-01-06] MEDS: ATORVASTATIN 80 MG TAB PO (20:12)
[2018-01-06] MEDS: INSULIN GLARGINE [LANtus] 3 ML PEN SC (20:15)
[2018-01-07] MEDS: ACCU-CHEK XX (02:05)
[2018-01-07] MEDS: INSULIN ASPART [NOVOLOG] 3 ML PEN SC ×4 (08:15→20:21)
[2018-01-07] MEDS: MEROPENEM 500MG/50 ML (PMX) 50 ML IVPB ×2 (09:06→20:15)
[2018-01-07] MEDS: APIXABAN 5 MG TABLET PO ×2 (09:08→20:17)
[2018-01-07] MEDS: CITALOPRAM 20 MG TAB PO (09:08)
[2018-01-07] MEDS: HYDROCHLOROTHIAZIDE 12.5 MG CAP PO (09:08)
[2018-01-07] MEDS: LOSARTAN 50 MG TAB PO ×2 (09:09→20:08)
[2018-01-07] MEDS: LEVOTHYROXINE 100 MCG TAB PO (09:09)
[2018-01-07] MEDS: METOPROLOL 25 MG TAB PO ×2 (09:09→20:09)
[2018-01-07] MEDS: DIPHENHYDRAMINE 50 MG CAP PO ×2 (09:19→21:15)
[2018-01-07] MEDS: VANCOMYCIN 1.5 GM in SOD CHLORIDE 0.9% 250 ML IVPB (13:06)
[2018-01-07] MEDS: HYDROCODONE/APAP (5/325) TAB PO (15:20)
[2018-01-07] MEDS: metFORMIN 500 MG TAB PO (17:40)
[2018-01-07] MEDS: ATORVASTATIN 80 MG TAB PO (20:08)
[2018-01-07] MEDS: CALCIUM/VITAMIN D (250/125) TAB PO (20:08)
[2018-01-07] MEDS: INSULIN GLARGINE [LANtus] 3 ML PEN SC (20:20)
[2018-01-08] MEDS: ACCU-CHEK XX (02:03)
[2018-01-08 05:30] LABS: ADD MAN DIFF? NO
[2018-01-08 05:37] LABS: WHITE BLOOD COUNT 5.7 10^3/ul (4.8-10.8)
[2018-01-08 05:37] LABS: BASOPHILS % 0.4 % (0.0-2.0); EOSINOPHILS # 0.4 10^3/ul (0.0-0.5); EOSINOPHILS % 7.8 % (0.0-7.0); HEMATOCRIT 28.4 % (37.0-47.0); LYMPHOCYTES # 2.4 10^3/ul (0.8-2.9); LYMPHOCYTES % 43.1 % (15.0-51.0); MEAN CORPUSCULAR HEMOGLOBIN 28.8 pg (29.0-33.0); MEAN CORPUSCULAR HGB CONC 31.7 g/dl (32.0-37.0); MEAN CORPUSCULAR VOLUME 90.7 fl (82.0-101.0); MEAN PLATELET VOLUME 10.9 fl (7.4-10.4); MONOCYTE # 0.4 10^3/ul (0.3-0.9); MONOCYTES % 7.4 % (0.0-11.0); NEUTROPHIL # 2.3 10^3/ul (1.6-7.5); NEUTROPHILS % 40.9 % (39.0-77.0); PLATELET COUNT 209 10^3/UL (140-415); RED BLOOD COUNT 3.13 10^6/ul (4.20-5.40); RED CELL DISTRIBUTION WIDTH 15.9 % (11.5-14.5)
[2018-01-08 06:03] LABS: ANION GAP 15 (8-16); BLOOD UREA NITROGEN 40 mg/dl (7-20); CALCIUM 8.8 mg/dl (8.4-10.2); CARBON DIOXIDE 25 mmol/L (21-31); CHLORIDE 108 mmol/L (97-110); CREATININE 1.01 mg/dl (0.44-1.00); GLUCOSE 93 mg/dl (70-220); POTASSIUM 4.1 mmol/L (3.5-5.1); SODIUM 144 mmol/L (135-144)
[2018-01-08] MEDS: LEVOTHYROXINE 100 MCG TAB PO (06:10)
[2018-01-08] MEDS: DIPHENHYDRAMINE 50 MG CAP PO ×2 (06:10→21:34)
[2018-01-08] MEDS: HYDROCHLOROTHIAZIDE 12.5 MG CAP PO (08:08)
[2018-01-08] MEDS: CITALOPRAM 20 MG TAB PO (08:08)
[2018-01-08] MEDS: APIXABAN 5 MG TABLET PO ×2 (08:08→21:25)
[2018-01-08] MEDS: LOSARTAN 50 MG TAB PO ×2 (08:09→21:25)
[2018-01-08] MEDS: MEROPENEM 500MG/50 ML (PMX) 50 ML IVPB ×2 (08:14→21:52)
[2018-01-08] MEDS: INSULIN ASPART [NOVOLOG] 3 ML PEN SC ×4 (08:15→21:32)
[2018-01-08] MEDS: METOPROLOL 25 MG TAB PO ×2 (08:19→21:35)
[2018-01-08] MEDS: CALCIUM/VITAMIN D (250/125) TAB PO ×2 (08:20→21:25)
[2018-01-08] MEDS: VANCOMYCIN 1.5 GM in SOD CHLORIDE 0.9% 250 ML IVPB (13:37)
[2018-01-08] MEDS: hydrALAzine 20 MG INJ IV (15:33)
[2018-01-08] MEDS: metFORMIN 500 MG TAB PO (17:36)
[2018-01-08] MEDS: ATORVASTATIN 80 MG TAB PO (21:25)
[2018-01-08] MEDS: INSULIN GLARGINE [LANtus] 3 ML PEN SC (21:30)
[2018-01-08] MEDS: ALTEPLASE (CATHFLO) 2 MG INJ CATHETER (23:16)
[2018-01-09] MEDS: ACCU-CHEK XX (02:29)
[2018-01-09] MEDS: DIPHENHYDRAMINE 50 MG CAP PO (06:02)
[2018-01-09] MEDS: LEVOTHYROXINE 100 MCG TAB PO (06:02)
[2018-01-09] MEDS: HYDROCODONE/APAP (5/325) TAB PO (06:05)
[2018-01-09] MEDS: INSULIN ASPART [NOVOLOG] 3 ML PEN SC ×2 (08:14→11:58)
[2018-01-09] MEDS: APIXABAN 5 MG TABLET PO (08:15)
[2018-01-09] MEDS: CALCIUM/VITAMIN D (250/125) TAB PO (08:15)
[2018-01-09] MEDS: CITALOPRAM 20 MG TAB PO (08:16)
[2018-01-09] MEDS: METOPROLOL 25 MG TAB PO (08:16)
[2018-01-09] MEDS: LOSARTAN 50 MG TAB PO (08:17)
[2018-01-09] MEDS: MEROPENEM 500MG/50 ML (PMX) 50 ML IVPB (08:17)
[2018-01-09] MEDS: HYDROCHLOROTHIAZIDE 12.5 MG CAP PO (08:17)
[2018-01-09] MEDS: VANCOMYCIN 1.5 GM in SOD CHLORIDE 0.9% 250 ML IVPB (12:02)
[2018-01-09] MEDS: hydrALAzine 20 MG INJ IV (17:32)
== END 2018-01-09 17:51 | DRG 638 ==
LOC: E/R 14:16 → MS2 12-30 13:00
PROC: 02HV33Z Insertion of Infusion Device into Superior Vena Cava, Percutaneous Approach (ICD-10-PCS; principal; 2017-12-27)
DX: E11.621 Type 2 diabetes mellitus with foot ulcer (principal); L03.115 Cellulitis of right lower limb; M86.671 Other chronic osteomyelitis, right ankle and foot; E87.0 Hyperosmolality and hypernatremia; E11.22 Type 2 diabetes mellitus with diabetic chronic kidney disease; M84.474A Pathological fracture, right foot, initial encounter for fracture; E11.42 Type 2 diabetes mellitus with diabetic polyneuropathy; L97.513 Non-pressure chronic ulcer of other part of right foot with necrosis of muscle; E11.69 Type 2 diabetes mellitus with other specified complication; I82.509 Chronic embolism and thrombosis of unspecified deep veins of unspecified lower extremity; E11.628 Type 2 diabetes mellitus with other skin complications; I12.9 Hypertensive chronic kidney disease with stage 1 through stage 4 chronic kidney disease, or unspecified chronic kidney disease; N18.9 Chronic kidney disease, unspecified; E03.9 Hypothyroidism, unspecified; Z86.718 Personal history of other venous thrombosis and embolism; B96.5 Pseudomonas (aeruginosa) (mallei) (pseudomallei) as the cause of diseases classified elsewhere; E66.9 Obesity, unspecified; Z68.36 Body mass index [BMI] 36.0-36.9, adult; Z91.14 Patient's other noncompliance with medication regimen; D63.8 Anemia in other chronic diseases classified elsewhere
CPT/HCPCS: 36415; 36569; 71045; 73630; 73718; 76937; 80048; 80053; 80061; 80202; 82728; 82962; 83036; 83540; 83735; 84443; 85025; 85610; 85730; 87070; 93306; 93970; 97110; 97116; 97161; 97530; 99285-25

== ENCOUNTER 2018-04-25 05:56 | Observation (INO) | payer MEDICARE ==
[2018-04-25 06:47] LABS: ADD MAN DIFF? NO
[2018-04-25 06:51] LABS: BASOPHILS % 0.2 % (0.0-2.0); HEMATOCRIT 31.5 % (37.0-47.0); HEMOGLOBIN 9.8 g/dl (12.0-16.0); LYMPHOCYTES # 1.2 10^3/ul (0.8-2.9); LYMPHOCYTES % 11.8 % (15.0-51.0); MEAN CORPUSCULAR HEMOGLOBIN 26.6 pg (29.0-33.0); MEAN CORPUSCULAR HGB CONC 31.1 g/dl (32.0-37.0); MEAN CORPUSCULAR VOLUME 85.6 fl (82.0-101.0); MEAN PLATELET VOLUME 9.7 fl (7.4-10.4); MONOCYTE # 0.2 10^3/ul (0.3-0.9); MONOCYTES % 1.6 % (0.0-11.0); NEUTROPHIL # 8.4 10^3/ul (1.6-7.5); NEUTROPHILS % 85.8 % (39.0-77.0); PLATELET COUNT 367 10^3/UL (140-415); RED BLOOD COUNT 3.68 10^6/ul (4.20-5.40)
[2018-04-25 06:51] LABS: WHITE BLOOD COUNT 9.8 10^3/ul (4.8-10.8)
[2018-04-25 06:55] LABS: HOLD TRANSMISSIONS 1
[2018-04-25 07:17] LABS: INR 0.97
[2018-04-25 07:18] LABS: PARTIAL THROMBOPLASTIN TIME 28.6 Sec (25.0-35.0)
[2018-04-25 07:25] LABS: ALANINE AMINOTRANSFERASE 41 IU/L (13-69); ALBUMIN 3.8 g/dl (3.3-4.9); ALBUMIN/GLOBULIN RATIO 0.88; ALKALINE PHOSPHATASE 115 IU/L (42-121); ANION GAP 16 (8-16); ASPARTATE AMINO TRANSFERASE 37 IU/L (15-46); BILIRUBIN,INDIRECT 0.4 mg/dl (0-1.1); BILIRUBIN,TOTAL 0.4 mg/dl (0.2-1.3); BLOOD UREA NITROGEN 34 mg/dl (7-20); CALCIUM 9.8 mg/dl (8.4-10.2); CARBON DIOXIDE 25 mmol/L (21-31); CHLORIDE 106 mmol/L (97-110); CREATININE 1.21 mg/dl (0.44-1.00); GLUCOSE 255 mg/dl (70-220); POTASSIUM 4.6 mmol/L (3.5-5.1); SODIUM 142 mmol/L (135-144); TOTAL PROTEIN 8.1 g/dl (6.1-8.1)
[2018-04-25] MEDS ORDERED: HEPARIN 1000 UNITS/NS (A-LINE) 1,000 ML (07:30)
[2018-04-25] MEDS ORDERED: SOD CHLORIDE 0.9% 500 ML (07:30)
[2018-04-25] MEDS ORDERED: LIDOCAINE 1% (MDV) 10 ML INJ (07:30)
[2018-04-25] MEDS ORDERED: IODIXANOL LOCM 100 ML BTL (07:30)
[2018-04-25] MEDS ORDERED: HYDROCORTISONE 100 MG INJ (07:35)
[2018-04-25] MEDS ORDERED: DIPHENHYDRAMINE 50 MG INJ (07:35)
[2018-04-25] MEDS ORDERED: FENTAnyl 50 MCG/ML VIAL (07:45)
[2018-04-25] MEDS ORDERED: MIDAZOLAM 1 MG/ML 2 ML INJ (07:45)
[2018-04-25] MEDS ORDERED: LABETALOL HCL 20MG INJ (07:45)
[2018-04-25] MEDS ORDERED: HEPARIN 1000 UNITS/ML 10 ML INJ (07:57)
[2018-04-25] MEDS: OXYCODONE/ACETAMINOPHEN (5/325) TAB PO (10:57)
[2018-04-25] MEDS ORDERED: morphine 2 MG INJ (11:11)
[2018-04-25] MEDS: morphine 2 MG INJ IV ×2 (11:15→11:48)
[2018-04-25] MEDS ORDERED: DOCUSATE SODIUM 100 MG CAP PO (14:00)
[2018-04-25] MEDS ORDERED: NACL 0.9% 3 ML SYG IV (14:00)
[2018-04-25] MEDS ORDERED: morphine 2 MG INJ IV (14:00)
[2018-04-25] MEDS ORDERED: HYDROCODONE/APAP (5/325) TAB PO (14:00)
[2018-04-25] MEDS ORDERED: ONDANSETRON 4 MG INJ IV (14:00)
[2018-04-25] MEDS ORDERED: ACETAMINOPHEN 325 MG TAB PO (14:00)
[2018-04-25] MEDS ORDERED: MAGNESIUM HYDROXIDE 30ML CUP PO (14:00)
[2018-04-25] MEDS ORDERED: ZOLPIDEM 5 MG TAB PO (14:00)
[2018-04-25] MEDS ORDERED: GLUCOSE GEL 15 GRAM TUBE BUCCAL (14:30)
[2018-04-25] MEDS ORDERED: DEXTROSE 50% 50 ML SYRINGE IV ×2 (14:30)
[2018-04-25] MEDS ORDERED: GLUCOSE GEL 15 GRAM TUBE PO ×2 (14:30)
[2018-04-25] MEDS ORDERED: GLUCAGON 1 MG INJ IM (14:30)
[2018-04-25] MEDS: INSULIN ASPART [NOVOLOG] 3 ML PEN SC ×3 (17:43→22:28)
[2018-04-25] MEDS: CALCIUM/VITAMIN D (250/125) TAB PO (20:58)
[2018-04-25] MEDS: METOPROLOL 25 MG TAB PO (20:59)
[2018-04-25] MEDS: ATORVASTATIN 80 MG TAB PO (20:59)
[2018-04-25] MEDS: LOSARTAN 50 MG TAB PO (20:59)
[2018-04-25] MEDS: INSULIN GLARGINE [LANtus] 3 ML PEN SC (21:06)
[2018-04-26] MEDS: ACCU-CHEK XX (02:00)
[2018-04-26] MEDS: LEVOTHYROXINE 100 MCG TAB PO (06:08)
[2018-04-26] MEDS: INSULIN ASPART [NOVOLOG] 3 ML PEN SC ×3 (08:00→17:27)
[2018-04-26] MEDS: HYDROCHLOROTHIAZIDE 25 MG TAB PO (08:21)
[2018-04-26] MEDS: CITALOPRAM 20 MG TAB PO (08:21)
[2018-04-26] MEDS: CALCIUM/VITAMIN D (250/125) TAB PO (08:21)
[2018-04-26] MEDS: LOSARTAN 50 MG TAB PO (08:21)
[2018-04-26] MEDS: METOPROLOL 25 MG TAB PO (08:22)
[2018-04-26 09:00] LABS: ADD MAN DIFF? NO
[2018-04-26 09:11] LABS: WHITE BLOOD COUNT 10.6 10^3/ul (4.8-10.8)
[2018-04-26 09:11] LABS: HEMATOCRIT 24.5 % (37.0-47.0); HEMOGLOBIN 7.6 g/dl (12.0-16.0); MEAN CORPUSCULAR HEMOGLOBIN 27.1 pg (29.0-33.0); MEAN CORPUSCULAR VOLUME 87.5 fl (82.0-101.0); PLATELET COUNT 309 10^3/UL (140-415); RED CELL DISTRIBUTION WIDTH 15.8 % (11.5-14.5)
[2018-04-26 09:12] LABS: BASOPHILS % 0.4 % (0.0-2.0); EOSINOPHILS # 0.1 10^3/ul (0.0-0.5); EOSINOPHILS % 0.5 % (0.0-7.0); LYMPHOCYTES # 3.2 10^3/ul (0.8-2.9); MEAN PLATELET VOLUME 10.4 fl (7.4-10.4); MONOCYTE # 0.9 10^3/ul (0.3-0.9); MONOCYTES % 8.4 % (0.0-11.0); NEUTROPHIL # 6.4 10^3/ul (1.6-7.5); NEUTROPHILS % 60.2 % (39.0-77.0)
[2018-04-26 09:27] LABS: HEMOGLOBIN A1C 8.3 % (0-5.9)
[2018-04-26 09:41] LABS: ANION GAP 14 (8-16); BLOOD UREA NITROGEN 55 mg/dl (7-20); CARBON DIOXIDE 26 mmol/L (21-31); CHLORIDE 103 mmol/L (97-110); GLUCOSE 127 mg/dl (70-220); MAGNESIUM 2.1 mg/dl (1.7-2.5); PHOSPHORUS 4.9 mg/dl (2.5-4.9); SODIUM 139 mmol/L (135-144)
[2018-04-26] MEDS ORDERED: morphine LIQ (10 MG/5 ML) CUP PO (19:30)
== END 2018-04-26 19:10 ==
LOC: CCL 05:56 → SDS 05:56 → CCL 13:51 → MS4 13:51
DX: E11.621 Type 2 diabetes mellitus with foot ulcer (principal); I10 Essential (primary) hypertension; E66.01 Morbid (severe) obesity due to excess calories; Z68.41 Body mass index [BMI] 40.0-44.9, adult; I73.9 Peripheral vascular disease, unspecified
CPT/HCPCS: 37228; 71045; 75710; 76881-LT; 76937; 80048; 80053; 82962; 83036; 83735; 84100; 85025; 85610; 85730; 93005; G0378

== ENCOUNTER 2018-05-01 14:08 | Day surgery (SDC) | payer MEDICARE, OTHER ==
[2018-05-01] MEDS ORDERED: LIDOCAINE 1% (MPF) 30 ML INJ (15:36)
[2018-05-01] MEDS ORDERED: MINERAL OIL LIGHT 10 ML VIAL (15:36)
[2018-05-01] MEDS ORDERED: PROPOFOL 0 ML (16:12)
[2018-05-01] MEDS ORDERED: FENTAnyl 50 MCG/ML VIAL (16:12)
[2018-05-01] MEDS ORDERED: MIDAZOLAM 1 MG/ML 2 ML INJ (16:12)
[2018-05-01] MEDS ORDERED: CLINDAMYCIN 900 MG/D5W (PMX) 50 ML IVPB (16:29)
[2018-05-01] MEDS ORDERED: FENTAnyl 50 MCG/ML VIAL IV ×3 (17:30)
== END 2018-05-01 18:33 | disposition home or self-care (01) ==
LOC: SDS 14:08
DX: E11.51 Type 2 diabetes mellitus with diabetic peripheral angiopathy without gangrene (principal); L97.519 Non-pressure chronic ulcer of other part of right foot with unspecified severity; Z68.41 Body mass index [BMI] 40.0-44.9, adult; I10 Essential (primary) hypertension; D64.9 Anemia, unspecified; E66.01 Morbid (severe) obesity due to excess calories; Z98.62 Peripheral vascular angioplasty status; Z86.19 Personal history of other infectious and parasitic diseases
CPT/HCPCS: 20220; 82962; 87070; 87075; 87102; 87116; 88304; 88311

== ENCOUNTER 2018-06-18 12:30 | Emergency (ER) | payer MEDICARE, MEDICAID ==
[2018-06-18] MEDS: ONDANSETRON 4 MG INJ IV (16:11)
[2018-06-18] MEDS: SOD CHLORIDE 0.9% 1,000 ML IV (16:11)
[2018-06-18 16:21] LABS: ADD MAN DIFF? NO
[2018-06-18 16:22] LABS: BASOPHILS % 0.4 % (0.0-2.0); EOSINOPHILS # 0.2 10^3/ul (0.0-0.5); HEMATOCRIT 30.7 % (37.0-47.0); HEMOGLOBIN 9.6 g/dl (12.0-16.0); LYMPHOCYTES # 2.8 10^3/ul (0.8-2.9); LYMPHOCYTES % 35.3 % (15.0-51.0); MEAN CORPUSCULAR HEMOGLOBIN 28.6 pg (29.0-33.0); MEAN CORPUSCULAR HGB CONC 31.3 g/dl (32.0-37.0); MEAN CORPUSCULAR VOLUME 91.4 fl (82.0-101.0); MEAN PLATELET VOLUME 9.2 fl (7.4-10.4); MONOCYTE # 0.6 10^3/ul (0.3-0.9); MONOCYTES % 7.8 % (0.0-11.0); NEUTROPHIL # 4.3 10^3/ul (1.6-7.5); NEUTROPHILS % 54.2 % (39.0-77.0); PLATELET COUNT 259 10^3/UL (140-415); RED BLOOD COUNT 3.36 10^6/ul (4.20-5.40); RED CELL DISTRIBUTION WIDTH 18.9 % (11.5-14.5)
[2018-06-18 16:30] LABS: ADD UMIC YES; UR ASCORBIC ACID NEGATIVE (NEGATIVE); UR BILIRUBIN (Dip) NEGATIVE (NEGATIVE); UR BLOOD (Dip) NEGATIVE (NEGATIVE); UR CLARITY CLEAR (CLEAR); UR COLOR STRAW (YELLOW); UR GLUCOSE (Dip) NEGATIVE (NEGATIVE); UR KETONES (Dip) NEGATIVE (NEGATIVE); UR LEUKOCYTE ESTERASE (Dip) NEGATIVE Leu/ul (NEGATIVE); UR NITRITE (Dip) NEGATIVE (NEGATIVE); UR RBC 0 /HPF (0-5); UR TOTAL PROTEIN (Dip) 1+ mg/dl (NEGATIVE); UR UROBILINOGEN (Dip) NEGATIVE (NEGATIVE); UR WBC 1 /HPF (0-5)
[2018-06-18 16:44] LABS: ANION GAP 12 (8-16); BLOOD UREA NITROGEN 28 mg/dl (7-20); CARBON DIOXIDE 25 mmol/L (21-31); CHLORIDE 105 mmol/L (97-110); CREATININE 1.23 mg/dl (0.44-1.00); GLUCOSE 120 mg/dl (70-220); POTASSIUM 4.8 mmol/L (3.5-5.1); SODIUM 137 mmol/L (135-144)
[2018-06-18 16:54] LABS: TROPONIN-I < 0.012 ng/ml (0.000-0.120)
== END 2018-06-18 17:30 | disposition home or self-care (01) ==
LOC: FTE 17:30
DX: I12.9 Hypertensive chronic kidney disease with stage 1 through stage 4 chronic kidney disease, or unspecified chronic kidney disease (principal); N18.9 Chronic kidney disease, unspecified; E11.22 Type 2 diabetes mellitus with diabetic chronic kidney disease; I25.10 Atherosclerotic heart disease of native coronary artery without angina pectoris; Z79.01 Long term (current) use of anticoagulants; Z79.4 Long term (current) use of insulin
CPT/HCPCS: 36415; 80048; 81001; 84484; 85025; 93005; 96374; 99284-25

== ENCOUNTER 2019-04-20 13:14 | Inpatient (IN) | payer MEDICARE, MEDICAID ==
[2019-04-20] MEDS: CEFAZOLIN 2 GM/50 ML (PMX) 50 ML IVPB (07:00)
[2019-04-20] MEDS: SOD CHLORIDE 0.9% 1,000 ML IV (15:24)
[2019-04-20] MEDS ORDERED: THROMBIN 5000 UNIT VIAL (16:58)
[2019-04-20] MEDS ORDERED: GELATIN SIZE 100 SPONGE (16:58)
[2019-04-20] MEDS ORDERED: PROPOFOL 20 ML (16:59)
[2019-04-20] MEDS ORDERED: LIDOCAINE 2% (SDV) 5 ML INJ (17:01)
[2019-04-20] MEDS ORDERED: ROCURONIUM 50 MG INJ (17:01)
[2019-04-20] MEDS ORDERED: FENTAnyl 50 MCG/ML VIAL (17:01)
[2019-04-20] MEDS ORDERED: CEFAZOLIN 1 GM INJ (17:02)
[2019-04-20] MEDS ORDERED: DEXAMETHASONE 4 MG/ML 5 ML INJ (17:07)
[2019-04-20] MEDS ORDERED: ONDANSETRON 4 MG INJ (17:07)
[2019-04-20] MEDS: POLYMYXIN/BACITRACIN 1L IRRIG (18:15)
[2019-04-20] MEDS: VANCOMYCIN 1 GM INJ (18:39)
[2019-04-20] MEDS ORDERED: SUGAMMADEX SODIUM 200 MG/2 ML VIAL IV (20:30)
[2019-04-20] MEDS ORDERED: HYDROmorphONE 1 MG/5 ML IV SYRINGE IV ×2 (20:52→21:00)
[2019-04-20] MEDS: INSULIN ASPART [NOVOLOG] 3 ML PEN SC (21:00)
[2019-04-20] MEDS ORDERED: FENTAnyl 50 MCG/ML VIAL IV ×3 (21:00)
[2019-04-20] MEDS ORDERED: HYDROCODONE/APAP (5/325) TAB PO (21:00)
[2019-04-20] MEDS ORDERED: METOCLOPRAMIDE 10 MG INJ IV (21:00)
[2019-04-20] MEDS ORDERED: LABETALOL HCL 20MG INJ IV (21:00)
[2019-04-20] MEDS ORDERED: ALBUTEROL 0.083% (NEB) 2.5 MG/3 ML AMP HHN (21:00)
[2019-04-20] MEDS ORDERED: ACETAMINOPHEN 325 MG TAB PO (21:00)
[2019-04-20] MEDS ORDERED: ONDANSETRON 4 MG INJ IV ×2 (21:00)
[2019-04-20] MEDS ORDERED: DIPHENHYDRAMINE 50 MG INJ IV (21:00)
[2019-04-20] MEDS ORDERED: CEFAZOLIN 1 GM/50 ML (PMX) 50 ML IVPB (21:00)
[2019-04-20] MEDS ORDERED: KETOROLAC 30 MG INJ IV (21:00)
[2019-04-20] MEDS ORDERED: hydrALAzine 20 MG INJ IV (21:00)
[2019-04-20] MEDS ORDERED: MEPERIDINE 25 MG INJ IV (21:00)
[2019-04-20] MEDS ORDERED: EPHEDrine 25 MG/5 ML SYG IV (21:00)
[2019-04-20] MEDS: HYDROmorphONE 1 MG/5 ML IV SYRINGE IV ×2 (21:22→21:29)
[2019-04-20] MEDS: FAMOTIDINE 20 MG INJ IV (23:50)
[2019-04-20] MEDS: LOSARTAN 50 MG TAB PO (23:53)
[2019-04-20] MEDS: METOPROLOL 25 MG TAB PO (23:53)
[2019-04-20] MEDS: ATORVASTATIN 80 MG TAB PO (23:54)
[2019-04-21] MEDS: LIOTHYRONINE 5 MCG TAB PO ×3 (01:14→21:50)
[2019-04-21] MEDS: APIXABAN 5 MG TABLET PO ×3 (01:14→21:49)
[2019-04-21] MEDS: ACCU-CHEK XX ×4 (02:00→19:55)
[2019-04-21] MEDS: CEFAZOLIN 1 GM/50 ML (PMX) 50 ML IVPB ×3 (02:13→17:24)
[2019-04-21] MEDS: SOD CHLORIDE 0.9% 1,000 ML IV (02:13)
[2019-04-21 04:56] LABS: ADD MAN DIFF? NO
[2019-04-21 05:02] LABS: BASOPHILS % 0.1 % (0.0-2.0); HEMATOCRIT 26.5 % (37.0-47.0); LYMPHOCYTES # 1.5 10^3/ul (0.8-2.9); LYMPHOCYTES % 10.1 % (15.0-51.0); MEAN CORPUSCULAR HEMOGLOBIN 26.9 pg (29.0-33.0); MEAN CORPUSCULAR HGB CONC 30.2 g/dl (32.0-37.0); MEAN CORPUSCULAR VOLUME 89.2 fl (82.0-101.0); MEAN PLATELET VOLUME 10.4 fl (7.4-10.4); MONOCYTE # 0.5 10^3/ul (0.3-0.9); MONOCYTES % 3.5 % (0.0-11.0); NEUTROPHIL # 13.1 10^3/ul (1.6-7.5); NEUTROPHILS % 85.8 % (39.0-77.0); PLATELET COUNT 282 10^3/UL (140-415); RED BLOOD COUNT 2.97 10^6/ul (4.20-5.40); RED CELL DISTRIBUTION WIDTH 15.2 % (11.5-14.5)
[2019-04-21 05:02] LABS: WHITE BLOOD COUNT 15.3 10^3/ul (4.8-10.8)
[2019-04-21] MEDS: HYDROCODONE/APAP (5/325) TAB PO ×2 (05:34→21:55)
[2019-04-21 05:35] LABS: ANION GAP 9 (5-13); BLOOD UREA NITROGEN 30 mg/dl (7-20); CALCIUM 9.1 mg/dl (8.4-10.2); CARBON DIOXIDE 26 mmol/L (21-31); CHLORIDE 106 mmol/L (97-110); CREATININE 1.25 mg/dl (0.44-1.00); Estimated GFR 43 mL/min (>60); GLUCOSE 250 mg/dl (70-220); POTASSIUM 4.8 mmol/L (3.5-5.1); SODIUM 141 mmol/L (135-144)
[2019-04-21] MEDS: LEVOTHYROXINE 100 MCG TAB PO (06:31)
[2019-04-21] MEDS ORDERED: metFORMIN 500 MG TAB PO (07:50)
[2019-04-21] MEDS: metFORMIN 500 MG TAB PO ×2 (08:43→17:24)
[2019-04-21] MEDS: FAMOTIDINE 20 MG INJ IV (08:44)
[2019-04-21] MEDS: LOSARTAN 50 MG TAB PO ×2 (08:45→21:49)
[2019-04-21] MEDS: CITALOPRAM 20 MG TAB PO (08:45)
[2019-04-21] MEDS: METOPROLOL 25 MG TAB PO ×2 (08:47→21:49)
[2019-04-21] MEDS: INSULIN ASPART [NOVOLOG] 3 ML PEN SC ×7 (08:49→21:52)
[2019-04-21] MEDS: CHLORTHALIDONE 25 MG TAB PO (08:53)
[2019-04-21 13:56] LABS: IRON 30 ug/dl (35-150)
[2019-04-21 14:05] LABS: % IRON SATURATION 9 % SAT (22-52); TOTAL IRON BINDING CAPACITY 350 ug/dl (241-421)
[2019-04-21 14:33] LABS: FERRITIN 8.1 ng/ml (11.1-264.0)
[2019-04-21] MEDS: ATORVASTATIN 80 MG TAB PO (21:49)
[2019-04-21] MEDS: FAMOTIDINE 20 MG TAB PO (21:50)
[2019-04-21] MEDS: INSULIN GLARGINE [LANTus] (100 UNITS/ML) SYG SC (21:51)
[2019-04-22] MEDS: CEFAZOLIN 1 GM/50 ML (PMX) 50 ML IVPB ×3 (01:45→18:05)
[2019-04-22] MEDS: ACCU-CHEK XX ×4 (01:49→20:30)
[2019-04-22 05:12] LABS: ADD MAN DIFF? NO
[2019-04-22 05:14] LABS: WHITE BLOOD COUNT 11.8 10^3/ul (4.8-10.8)
[2019-04-22 05:14] LABS: ABNORMAL IP MESSAGE 1; BASOPHILS % 0.3 % (0.0-2.0); EOSINOPHILS # 0.1 10^3/ul (0.0-0.5); EOSINOPHILS % 0.8 % (0.0-7.0); HEMATOCRIT 22.1 % (37.0-47.0); LYMPHOCYTES # 3.4 10^3/ul (0.8-2.9); LYMPHOCYTES % 28.5 % (15.0-51.0); MEAN CORPUSCULAR HEMOGLOBIN 27.2 pg (29.0-33.0); MEAN CORPUSCULAR HGB CONC 30.3 g/dl (32.0-37.0); MEAN CORPUSCULAR VOLUME 89.8 fl (82.0-101.0); MEAN PLATELET VOLUME 10.6 fl (7.4-10.4); MONOCYTE # 1.1 10^3/ul (0.3-0.9); NEUTROPHIL # 7.2 10^3/ul (1.6-7.5); NEUTROPHILS % 61.1 % (39.0-77.0); PLATELET COUNT 264 10^3/UL (140-415); RED BLOOD COUNT 2.46 10^6/ul (4.20-5.40); RED CELL DISTRIBUTION WIDTH 15.6 % (11.5-14.5)
[2019-04-22 05:31] LABS: HEMOGLOBIN 6.7 g/dl (12.0-16.0)
[2019-04-22 05:32] LABS: POSITIVE DIFF @See below
[2019-04-22] MEDS: LEVOTHYROXINE 100 MCG TAB PO (06:10)
[2019-04-22] MEDS: METOPROLOL 50 MG TAB PO ×2 (09:05→21:39)
[2019-04-22] MEDS: LIOTHYRONINE 5 MCG TAB PO ×2 (09:06→21:39)
[2019-04-22] MEDS: CITALOPRAM 20 MG TAB PO (09:06)
[2019-04-22] MEDS: FAMOTIDINE 20 MG TAB PO ×2 (09:06→21:39)
[2019-04-22] MEDS: metFORMIN 500 MG TAB PO ×2 (09:06→17:50)
[2019-04-22] MEDS: APIXABAN 5 MG TABLET PO ×2 (09:07→21:39)
[2019-04-22] MEDS: LOSARTAN 50 MG TAB PO ×2 (09:07→21:40)
[2019-04-22] MEDS: CHLORTHALIDONE 25 MG TAB PO (09:07)
[2019-04-22] MEDS: INSULIN ASPART [NOVOLOG] 3 ML PEN SC ×6 (09:14→21:00)
[2019-04-22] MEDS: INSULIN GLARGINE [LANTus] (100 UNITS/ML) SYG SC ×2 (10:14→21:37)
[2019-04-22] MEDS: SOD FERRIC GLUC COMPLX 125 MG in SOD CHLORIDE 0.9% 100 ML IVPB ×2 (10:46→16:47)
[2019-04-22 13:38] LABS: ANISOCYTOSIS 1+ (0-0); BURR CELLS 1+ (0-0); EOSINOPHILS % (M) 2 % (0-7); LYMPHOCYTES #M 3.4 10^3/ul (0.8-2.9); LYMPHOCYTES % (M) 29 % (15-51); MICROCYTOSIS 1+ (0-0); MONOCYTE #M 0.2 10^3/ul (0.3-0.9); MONOCYTES % (M) 2 % (0-11); PLATELET ESTIMATE NORMAL; POIKILOCYTOSIS 2+ (0-0); SEGMENTED NEUTROPHILS (M) % 67 % (39-77); SMUDGE%M 7 % (0-0); SPHEROCYTES 1+ (0-0)
[2019-04-22 13:42] LABS: IMMEDIATE SPIN CROSSMATCH 1 1
[2019-04-22] MEDS: HYDROCODONE/APAP (5/325) TAB PO (13:57)
[2019-04-22] MEDS: SOD CHLORIDE 0.9% 1,000 ML IV (15:30)
[2019-04-22] MEDS: ATORVASTATIN 80 MG TAB PO (21:39)
[2019-04-23] MEDS: CEFAZOLIN 1 GM/50 ML (PMX) 50 ML IVPB ×2 (01:38→10:06)
[2019-04-23] MEDS: ACCU-CHEK XX ×4 (01:42→19:55)
[2019-04-23 05:46] LABS: ADD MAN DIFF? NO
[2019-04-23 05:50] LABS: BASOPHILS % 0.3 % (0.0-2.0); EOSINOPHILS # 0.3 10^3/ul (0.0-0.5); EOSINOPHILS % 2.7 % (0.0-7.0); HEMATOCRIT 27.3 % (37.0-47.0); HEMOGLOBIN 8.3 g/dl (12.0-16.0); LYMPHOCYTES # 3.4 10^3/ul (0.8-2.9); MEAN CORPUSCULAR HGB CONC 30.4 g/dl (32.0-37.0); MEAN CORPUSCULAR VOLUME 88.9 fl (82.0-101.0); MEAN PLATELET VOLUME 10.6 fl (7.4-10.4); MONOCYTE # 1.1 10^3/ul (0.3-0.9); MONOCYTES % 9.2 % (0.0-11.0); NEUTROPHIL # 6.7 10^3/ul (1.6-7.5); NEUTROPHILS % 58.2 % (39.0-77.0); PLATELET COUNT 273 10^3/UL (140-415); RED BLOOD COUNT 3.07 10^6/ul (4.20-5.40); RED CELL DISTRIBUTION WIDTH 15.3 % (11.5-14.5)
[2019-04-23 05:50] LABS: WHITE BLOOD COUNT 11.6 10^3/ul (4.8-10.8)
[2019-04-23] MEDS: LEVOTHYROXINE 100 MCG TAB PO (06:18)
[2019-04-23 07:07] LABS: ANION GAP 5 (5-13); BLOOD UREA NITROGEN 33 mg/dl (7-20); CALCIUM 8.8 mg/dl (8.4-10.2); CARBON DIOXIDE 26 mmol/L (21-31); CHLORIDE 110 mmol/L (97-110); CREATININE 1.29 mg/dl (0.44-1.00); Estimated GFR 41 mL/min (>60); GLUCOSE 73 mg/dl (70-220); POTASSIUM 4.6 mmol/L (3.5-5.1); SODIUM 141 mmol/L (135-144)
[2019-04-23] MEDS: INSULIN ASPART [NOVOLOG] 3 ML PEN SC ×7 (07:50→21:12)
[2019-04-23] MEDS: FAMOTIDINE 20 MG TAB PO ×2 (08:24→21:06)
[2019-04-23] MEDS: METOPROLOL 50 MG TAB PO ×2 (08:25→21:05)
[2019-04-23] MEDS: CHLORTHALIDONE 25 MG TAB PO (08:25)
[2019-04-23] MEDS: LIOTHYRONINE 5 MCG TAB PO ×2 (08:26→21:05)
[2019-04-23] MEDS: APIXABAN 5 MG TABLET PO ×2 (08:26→21:06)
[2019-04-23] MEDS: LOSARTAN 50 MG TAB PO ×2 (08:26→21:05)
[2019-04-23] MEDS: CITALOPRAM 20 MG TAB PO (08:26)
[2019-04-23] MEDS: metFORMIN 500 MG TAB PO ×2 (08:29→17:52)
[2019-04-23] MEDS: HYDROCODONE/APAP (5/325) TAB PO (12:52)
[2019-04-23] MEDS ORDERED: CEFEPIME 2GM/50 ML (PMX) 50 ML IVPB (13:00)
[2019-04-23] MEDS ORDERED: DEXTROSE 50% 50 ML SYRINGE IV ×2 (13:30)
[2019-04-23] MEDS ORDERED: GLUCOSE GEL 15 GRAM TUBE PO ×2 (13:30)
[2019-04-23] MEDS ORDERED: GLUCOSE GEL 15 GRAM TUBE BUCCAL (13:30)
[2019-04-23] MEDS ORDERED: GLUCAGON 1 MG INJ IM (13:30)
[2019-04-23] MEDS: SOD FERRIC GLUC COMPLX 125 MG in SOD CHLORIDE 0.9% 100 ML IVPB (14:06)
[2019-04-23] MEDS: CEFTRIAXONE 2 GM/50 ML (PMX) 50 ML IVPB (15:29)
[2019-04-23] MEDS: LACTATED RINGER'S 500 ML IV (16:27)
[2019-04-23] MEDS: ATORVASTATIN 80 MG TAB PO (21:06)
[2019-04-23] MEDS: INSULIN GLARGINE [LANTus] (100 UNITS/ML) SYG SC (21:13)
[2019-04-24] MEDS: ACCU-CHEK XX ×4 (02:00→19:55)
[2019-04-24 05:21] LABS: ADD MAN DIFF? NO
[2019-04-24 05:24] LABS: BASOPHILS % 0.3 % (0.0-2.0); EOSINOPHILS # 0.3 10^3/ul (0.0-0.5); EOSINOPHILS % 3.1 % (0.0-7.0); HEMATOCRIT 25.2 % (37.0-47.0); HEMOGLOBIN 7.8 g/dl (12.0-16.0); LYMPHOCYTES # 3.2 10^3/ul (0.8-2.9); MEAN CORPUSCULAR HEMOGLOBIN 27.3 pg (29.0-33.0); MEAN CORPUSCULAR VOLUME 88.1 fl (82.0-101.0); MEAN PLATELET VOLUME 10.5 fl (7.4-10.4); MONOCYTE # 0.9 10^3/ul (0.3-0.9); MONOCYTES % 8.6 % (0.0-11.0); NEUTROPHIL # 5.4 10^3/ul (1.6-7.5); NUCLEATED RED BLOOD CELLS% 0.2 /100WBC (0.0-0.0); PLATELET COUNT 271 10^3/UL (140-415); RED BLOOD COUNT 2.86 10^6/ul (4.20-5.40); RED CELL DISTRIBUTION WIDTH 15.6 % (11.5-14.5)
[2019-04-24 05:24] LABS: WHITE BLOOD COUNT 9.9 10^3/ul (4.8-10.8)
[2019-04-24 05:34] LABS: MAGNESIUM 1.8 mg/dl (1.7-2.5)
[2019-04-24 05:34] LABS: PHOSPHORUS 3.1 mg/dl (2.5-4.9)
[2019-04-24 05:45] LABS: ALANINE AMINOTRANSFERASE 16 IU/L (13-69); ALBUMIN 2.8 g/dl (3.3-4.9); ALKALINE PHOSPHATASE 72 IU/L (42-121); ANION GAP 6 (5-13); ASPARTATE AMINO TRANSFERASE 16 IU/L (15-46); BILIRUBIN,INDIRECT 0.3 mg/dl (0-1.1); BILIRUBIN,TOTAL 0.3 mg/dl (0.2-1.3); BLOOD UREA NITROGEN 28 mg/dl (7-20); CALCIUM 8.5 mg/dl (8.4-10.2); CARBON DIOXIDE 26 mmol/L (21-31); CHLORIDE 108 mmol/L (97-110); CREATININE 1.25 mg/dl (0.44-1.00); Estimated GFR 43 mL/min (>60); GLUCOSE 117 mg/dl (70-220); POTASSIUM 4.3 mmol/L (3.5-5.1); SODIUM 140 mmol/L (135-144); TOTAL PROTEIN 5.9 g/dl (6.1-8.1)
[2019-04-24] MEDS: LEVOTHYROXINE 100 MCG TAB PO (06:06)
[2019-04-24 07:29] LABS: ERYTHROCYTE SEDIMENTATION RATE 65 mm/Hr (0-30)
[2019-04-24] MEDS: INSULIN ASPART [NOVOLOG] 3 ML PEN SC ×6 (07:50→20:32)
[2019-04-24] MEDS: LIOTHYRONINE 5 MCG TAB PO ×2 (08:47→20:16)
[2019-04-24] MEDS: APIXABAN 5 MG TABLET PO ×2 (08:48→20:16)
[2019-04-24] MEDS: LOSARTAN 50 MG TAB PO ×2 (08:48→20:16)
[2019-04-24] MEDS: CITALOPRAM 20 MG TAB PO (08:48)
[2019-04-24] MEDS: METOPROLOL 50 MG TAB PO ×2 (08:49→20:17)
[2019-04-24] MEDS: FAMOTIDINE 20 MG TAB PO ×2 (08:49→20:33)
[2019-04-24] MEDS: CHLORTHALIDONE 25 MG TAB PO (08:49)
[2019-04-24] MEDS: metFORMIN 500 MG TAB PO ×2 (08:51→18:01)
[2019-04-24] MEDS: HYDROCODONE/APAP (5/325) TAB PO (09:36)
[2019-04-24] MEDS: SOD FERRIC GLUC COMPLX 125 MG in SOD CHLORIDE 0.9% 100 ML IVPB (13:29)
[2019-04-24] MEDS: CEFTRIAXONE 2 GM/50 ML (PMX) 50 ML IVPB (15:32)
[2019-04-24] MEDS: ATORVASTATIN 80 MG TAB PO (20:17)
[2019-04-24] MEDS: INSULIN GLARGINE [LANTus] (100 UNITS/ML) SYG SC (20:32)
[2019-04-24] MEDS: AMLODIPINE 2.5 MG TAB PO (20:33)
[2019-04-25] MEDS: ACCU-CHEK XX ×4 (02:00→19:55)
[2019-04-25] MEDS: metFORMIN 500 MG TAB PO ×2 (08:44→18:00)
[2019-04-25] MEDS: LEVOTHYROXINE 100 MCG TAB PO (08:44)
[2019-04-25] MEDS: INSULIN ASPART [NOVOLOG] 3 ML PEN SC ×7 (08:48→20:21)
[2019-04-25] MEDS: CHLORTHALIDONE 25 MG TAB PO (09:44)
[2019-04-25] MEDS: FAMOTIDINE 20 MG TAB PO ×2 (09:44→20:10)
[2019-04-25] MEDS: LOSARTAN 50 MG TAB PO ×2 (09:45→20:10)
[2019-04-25] MEDS: METOPROLOL 50 MG TAB PO ×2 (09:45→20:11)
[2019-04-25] MEDS: CITALOPRAM 20 MG TAB PO (09:45)
[2019-04-25] MEDS: LIOTHYRONINE 5 MCG TAB PO ×2 (09:45→20:17)
[2019-04-25] MEDS: APIXABAN 5 MG TABLET PO ×2 (09:45→20:10)
[2019-04-25] MEDS: AMLODIPINE 2.5 MG TAB PO ×2 (09:46→20:10)
[2019-04-25] MEDS: SOD FERRIC GLUC COMPLX 125 MG in SOD CHLORIDE 0.9% 100 ML IVPB (13:07)
[2019-04-25] MEDS: CEFTRIAXONE 2 GM/50 ML (PMX) 50 ML IVPB (14:33)
[2019-04-25] MEDS: ATORVASTATIN 80 MG TAB PO (20:10)
[2019-04-25] MEDS: INSULIN GLARGINE [LANTus] (100 UNITS/ML) SYG SC (20:14)
[2019-04-25] MEDS: METHYLNALTREXONE 12 MG/0.6 ML VIAL SC (23:13)
[2019-04-26] MEDS: ACCU-CHEK XX ×5 (02:00→22:13)
[2019-04-26] MEDS: BISACODYL (EC) 5 MG TAB PO (02:00)
[2019-04-26 05:01] LABS: ADD MAN DIFF? NO
[2019-04-26 05:13] LABS: BASOPHILS % 0.2 % (0.0-2.0); EOSINOPHILS # 0.3 10^3/ul (0.0-0.5); EOSINOPHILS % 2.9 % (0.0-7.0); HEMOGLOBIN 8.7 g/dl (12.0-16.0); LYMPHOCYTES % 27.8 % (15.0-51.0); MEAN CORPUSCULAR HEMOGLOBIN 27.6 pg (29.0-33.0); MEAN CORPUSCULAR HGB CONC 31.1 g/dl (32.0-37.0); MEAN CORPUSCULAR VOLUME 88.9 fl (82.0-101.0); MEAN PLATELET VOLUME 10.3 fl (7.4-10.4); MONOCYTE # 0.9 10^3/ul (0.3-0.9); MONOCYTES % 8.2 % (0.0-11.0); NEUTROPHIL # 6.4 10^3/ul (1.6-7.5); NEUTROPHILS % 59.8 % (39.0-77.0); PLATELET COUNT 311 10^3/UL (140-415); RED BLOOD COUNT 3.15 10^6/ul (4.20-5.40); RED CELL DISTRIBUTION WIDTH 15.7 % (11.5-14.5)
[2019-04-26 05:13] LABS: WHITE BLOOD COUNT 10.7 10^3/ul (4.8-10.8)
[2019-04-26 05:33] LABS: ANION GAP 6 (5-13); BLOOD UREA NITROGEN 32 mg/dl (7-20); CALCIUM 9.2 mg/dl (8.4-10.2); CARBON DIOXIDE 27 mmol/L (21-31); CHLORIDE 104 mmol/L (97-110); CREATININE 1.29 mg/dl (0.44-1.00); Estimated GFR 41 mL/min (>60); GLUCOSE 204 mg/dl (70-220); POTASSIUM 4.6 mmol/L (3.5-5.1); SODIUM 137 mmol/L (135-144)
[2019-04-26] MEDS: LEVOTHYROXINE 100 MCG TAB PO (05:59)
[2019-04-26] MEDS: LINAGLIPTIN 5 MG TABLET PO (08:53)
[2019-04-26] MEDS: LIOTHYRONINE 5 MCG TAB PO ×2 (08:53→20:23)
[2019-04-26] MEDS: FAMOTIDINE 20 MG TAB PO ×2 (08:56→20:25)
[2019-04-26] MEDS: CITALOPRAM 20 MG TAB PO (08:56)
[2019-04-26] MEDS: APIXABAN 5 MG TABLET PO ×2 (08:56→20:25)
[2019-04-26] MEDS: CHLORTHALIDONE 25 MG TAB PO (08:57)
[2019-04-26] MEDS: POLYETHYLENE GLYCOL 17 GM PACKET PO (08:58)
[2019-04-26] MEDS: LOSARTAN 50 MG TAB PO ×2 (08:59→20:25)
[2019-04-26] MEDS: METOPROLOL 50 MG TAB PO ×2 (08:59→20:25)
[2019-04-26] MEDS: AMLODIPINE 2.5 MG TAB PO ×2 (09:00→20:25)
[2019-04-26] MEDS: metFORMIN 500 MG TAB PO ×2 (09:03→17:48)
[2019-04-26] MEDS: INSULIN ASPART [NOVOLOG] 3 ML PEN SC ×7 (09:05→20:26)
[2019-04-26] MEDS: SOD FERRIC GLUC COMPLX 125 MG in SOD CHLORIDE 0.9% 100 ML IVPB (13:12)
[2019-04-26] MEDS: CEFTRIAXONE 2 GM/50 ML (PMX) 50 ML IVPB (14:38)
[2019-04-26] MEDS: NA PHOSPHATE/BIPHOS 133 ML ENEMA PR (16:57)
[2019-04-26] MEDS: ATORVASTATIN 80 MG TAB PO (20:26)
[2019-04-26] MEDS: INSULIN GLARGINE [LANTus] (100 UNITS/ML) SYG SC (20:28)
[2019-04-27] MEDS: LEVOTHYROXINE 100 MCG TAB PO (06:37)
[2019-04-27] MEDS: APIXABAN 5 MG TABLET PO ×2 (08:40→20:22)
[2019-04-27] MEDS: CHLORTHALIDONE 25 MG TAB PO (08:40)
[2019-04-27] MEDS: METOPROLOL 50 MG TAB PO ×2 (08:40→20:21)
[2019-04-27] MEDS: LOSARTAN 50 MG TAB PO ×2 (08:41→20:20)
[2019-04-27] MEDS: AMLODIPINE 2.5 MG TAB PO ×2 (08:42→20:21)
[2019-04-27] MEDS: CITALOPRAM 20 MG TAB PO (08:42)
[2019-04-27] MEDS: FAMOTIDINE 20 MG TAB PO ×2 (08:42→20:20)
[2019-04-27] MEDS: LINAGLIPTIN 5 MG TABLET PO (08:46)
[2019-04-27] MEDS: metFORMIN 500 MG TAB PO ×2 (08:47→17:47)
[2019-04-27] MEDS: INSULIN ASPART [NOVOLOG] 3 ML PEN SC ×7 (08:50→20:19)
[2019-04-27] MEDS: LIOTHYRONINE 5 MCG TAB PO ×2 (08:55→20:21)
[2019-04-27] MEDS: LIDOCAINE 1% (MPF) 5 ML VIAL SC (11:00)
[2019-04-27] MEDS: ACCU-CHEK XX ×4 (11:30→20:19)
[2019-04-27] MEDS: HYDROCODONE/APAP (5/325) TAB PO (11:53)
[2019-04-27 12:45] LABS: TROPONIN-I < 0.012 ng/ml (0.000-0.120)
[2019-04-27] MEDS: CEFTRIAXONE 2 GM/50 ML (PMX) 50 ML IVPB (14:11)
[2019-04-27] MEDS: FUROSEMIDE 20 MG TAB PO (17:54)
[2019-04-27] MEDS: ATORVASTATIN 80 MG TAB PO (20:21)
[2019-04-27] MEDS: INSULIN GLARGINE [LANTus] (100 UNITS/ML) SYG SC (20:24)
[2019-04-27] MEDS: METHYLNALTREXONE 12 MG/0.6 ML VIAL SC (23:00)
[2019-04-28] MEDS: LEVOTHYROXINE 100 MCG TAB PO (06:28)
[2019-04-28] MEDS: INSULIN ASPART [NOVOLOG] 3 ML PEN SC ×6 (07:50→17:45)
[2019-04-28] MEDS: LINAGLIPTIN 5 MG TABLET PO (08:41)
[2019-04-28] MEDS: APIXABAN 5 MG TABLET PO (08:41)
[2019-04-28] MEDS: LIOTHYRONINE 5 MCG TAB PO (08:42)
[2019-04-28] MEDS: LOSARTAN 50 MG TAB PO (08:42)
[2019-04-28] MEDS: METOPROLOL 50 MG TAB PO (08:42)
[2019-04-28] MEDS: CITALOPRAM 20 MG TAB PO (08:42)
[2019-04-28] MEDS: metFORMIN 500 MG TAB PO ×2 (08:42→17:45)
[2019-04-28] MEDS: CHLORTHALIDONE 25 MG TAB PO (08:43)
[2019-04-28] MEDS: AMLODIPINE 2.5 MG TAB PO (08:43)
[2019-04-28] MEDS: FAMOTIDINE 20 MG TAB PO (08:43)
[2019-04-28] MEDS: ACCU-CHEK XX ×2 (09:52→13:40)
[2019-04-28] MEDS: CEFTRIAXONE 2 GM/50 ML (PMX) 50 ML IVPB (14:29)
[2019-04-28] MEDS: HYDROCODONE/APAP (5/325) TAB PO (18:54)
== END 2019-04-28 19:00 | disposition home health service (06) | DRG 41 ==
LOC: REC 13:14 → MS1 23:22
PROVIDERS: Podiatrist Foot & Ankle Surgery
PROC: 0SGH0KZ Fusion of Right Tarsal Joint with Nonautologous Tissue Substitute, Open Approach (ICD-10-PCS; principal; 2019-04-20 16:30)
PROC: 0KXV0ZZ Transfer Right Foot Muscle, Open Approach (ICD-10-PCS; 2019-04-20 16:30)
PROC: 0QBL0ZZ Excision of Right Tarsal, Open Approach (ICD-10-PCS; 2019-04-20 16:30)
PROC: 0SGH05Z Fusion of Right Tarsal Joint with External Fixation Device, Open Approach (ICD-10-PCS; 2019-04-20 16:30)
PROC: 0SGH0JZ Fusion of Right Tarsal Joint with Synthetic Substitute, Open Approach (ICD-10-PCS; 2019-04-20 16:30)
PROC: 0HRMXK3 Replacement of Right Foot Skin with Nonautologous Tissue Substitute, Full Thickness, External Approach (ICD-10-PCS; 2019-04-20 16:30)
PROC: 0KXV0ZZ Transfer Right Foot Muscle, Open Approach (ICD-10-PCS; 2019-04-20 16:30)
PROC: 0JXQ0ZZ Transfer Right Foot Subcutaneous Tissue and Fascia, Open Approach (ICD-10-PCS; 2019-04-20 16:30)
PROC: 30233N1 Transfusion of Nonautologous Red Blood Cells into Peripheral Vein, Percutaneous Approach (ICD-10-PCS; 2019-04-20 17:09)
DX: E11.610 Type 2 diabetes mellitus with diabetic neuropathic arthropathy (principal); M86.171 Other acute osteomyelitis, right ankle and foot; L97.413 Non-pressure chronic ulcer of right heel and midfoot with necrosis of muscle; M84.474A Pathological fracture, right foot, initial encounter for fracture; Z68.41 Body mass index [BMI] 40.0-44.9, adult; M25.374 Other instability, right foot; E11.621 Type 2 diabetes mellitus with foot ulcer; E11.69 Type 2 diabetes mellitus with other specified complication; E66.01 Morbid (severe) obesity due to excess calories; E78.5 Hyperlipidemia, unspecified; E03.9 Hypothyroidism, unspecified; D50.9 Iron deficiency anemia, unspecified; E11.42 Type 2 diabetes mellitus with diabetic polyneuropathy; E11.51 Type 2 diabetes mellitus with diabetic peripheral angiopathy without gangrene; I12.9 Hypertensive chronic kidney disease with stage 1 through stage 4 chronic kidney disease, or unspecified chronic kidney disease; K59.03 Drug induced constipation; R07.9 Chest pain, unspecified; E11.22 Type 2 diabetes mellitus with diabetic chronic kidney disease; N18.3 Chronic kidney disease, stage 3 (moderate); E11.21 Type 2 diabetes mellitus with diabetic nephropathy; B96.20 Unspecified Escherichia coli [E. coli] as the cause of diseases classified elsewhere; Z79.4 Long term (current) use of insulin; Z98.62 Peripheral vascular angioplasty status; Z86.718 Personal history of other venous thrombosis and embolism
CPT/HCPCS: 36430; 36569; 71045; 73590; 73600; 73620; 80048; 80053; 82728; 82962; 83540; 83735; 84100; 84484; 85025; 85651; 86850; 86900; 86901; 86920; 87070; 87075; 87102; 87116; 88304; 88311; 93005; 97162; 97530

== ENCOUNTER 2019-06-03 10:42 | Inpatient (IN) | payer MEDICARE, OTHER, MEDICAID ==
[2019-06-03 12:22] LABS: ADD MAN DIFF? NO
[2019-06-03 12:31] LABS: BASOPHIL # 0.1 10^3/ul (0.0-0.1); BASOPHILS % 0.5 % (0.0-2.0); EOSINOPHILS # 0.2 10^3/ul (0.0-0.5); EOSINOPHILS % 2.5 % (0.0-7.0); HEMATOCRIT 38.1 % (37.0-47.0); HEMOGLOBIN 11.6 g/dl (12.0-16.0); LYMPHOCYTES # 2.8 10^3/ul (0.8-2.9); LYMPHOCYTES % 29.7 % (15.0-51.0); MEAN CORPUSCULAR HGB CONC 30.4 g/dl (32.0-37.0); MEAN CORPUSCULAR VOLUME 95.3 fl (82.0-101.0); MEAN PLATELET VOLUME 10.5 fl (7.4-10.4); MONOCYTE # 0.7 10^3/ul (0.3-0.9); MONOCYTES % 7.3 % (0.0-11.0); NEUTROPHIL # 5.7 10^3/ul (1.6-7.5); NEUTROPHILS % 59.7 % (39.0-77.0); PLATELET COUNT 286 10^3/UL (140-415); RED CELL DISTRIBUTION WIDTH 15.4 % (11.5-14.5)
[2019-06-03 12:31] LABS: WHITE BLOOD COUNT 9.6 10^3/ul (4.8-10.8)
[2019-06-03 12:54] LABS: ANION GAP 7 (5-13); BLOOD UREA NITROGEN 41 mg/dl (7-20); CARBON DIOXIDE 25 mmol/L (21-31); CHLORIDE 106 mmol/L (97-110); CREATININE 1.54 mg/dl (0.44-1.00); Estimated GFR 34 mL/min (>60); GLUCOSE 236 mg/dl (70-220); POTASSIUM 5.3 mmol/L (3.5-5.1); SODIUM 138 mmol/L (135-144)
[2019-06-03 12:58] LABS: INR 1.19; PARTIAL THROMBOPLASTIN TIME 35.2 Sec (23.0-35.0); PROTIME 15.2 Sec (11.9-14.9); PT RATIO 1.2
[2019-06-03] MEDS ORDERED: ONDANSETRON 4 MG INJ IV (13:00)
[2019-06-03] MEDS ORDERED: ACETAMINOPHEN 325 MG TAB PO (13:00)
[2019-06-03] MEDS ORDERED: DEXTROSE 50% 50 ML SYRINGE IV ×2 (18:00)
[2019-06-03] MEDS: metFORMIN 500 MG TAB PO (18:00)
[2019-06-03] MEDS ORDERED: GLUCAGON 1 MG INJ IM (18:00)
[2019-06-03] MEDS ORDERED: GLUCOSE GEL 15 GRAM TUBE PO ×2 (18:00)
[2019-06-03] MEDS: INSULIN ASPART [NOVOLOG] 3 ML PEN SC (18:00)
[2019-06-03] MEDS ORDERED: GLUCOSE GEL 15 GRAM TUBE BUCCAL (18:00)
[2019-06-03] MEDS: ACCU-CHEK XX ×2 (18:29→23:30)
[2019-06-03] MEDS ORDERED: CEFAZOLIN 1 GM INJ (21:00)
[2019-06-03] MEDS ORDERED: INSULIN GLARGINE [LANTus] (100 UNITS/ML) SYG SC (21:00)
[2019-06-03] MEDS ORDERED: HYDROmorphONE 1 MG/5 ML IV SYRINGE IV ×2 (21:00)
[2019-06-03] MEDS ORDERED: PROCHLORPERAZINE 10 MG INJ IV (21:00)
[2019-06-03] MEDS ORDERED: DIPHENHYDRAMINE 50 MG INJ IV (21:00)
[2019-06-03] MEDS ORDERED: METOPROLOL 50 MG TAB PO (21:00)
[2019-06-03] MEDS ORDERED: hydrALAzine 20 MG INJ IV (21:00)
[2019-06-03] MEDS ORDERED: FENTAnyl 50 MCG/ML VIAL IV (21:00)
[2019-06-03] MEDS ORDERED: MIDAZOLAM 1 MG/ML 2 ML INJ (21:09)
[2019-06-03] MEDS ORDERED: LIDOCAINE 2% (SDV) 5 ML INJ (21:09)
[2019-06-03] MEDS ORDERED: PROPOFOL 20 ML (21:09)
[2019-06-03] MEDS ORDERED: EPHEDrine 25 MG/5 ML SYG (21:29)
[2019-06-03] MEDS: POLYMYXIN/BACITRACIN 1L IRRIG IRR (21:40)
[2019-06-03] MEDS ORDERED: FAMOTIDINE 20 MG INJ (21:41)
[2019-06-03] MEDS ORDERED: ONDANSETRON 4 MG INJ (21:41)
[2019-06-03] MEDS ORDERED: FENTAnyl 50 MCG/ML VIAL (21:56)
[2019-06-03] MEDS: HYDROmorphONE 1 MG/5 ML IV SYRINGE IV (22:42)
[2019-06-03] MEDS: LABETALOL HCL 20MG INJ IV (22:55)
[2019-06-03] MEDS: MEPERIDINE 25 MG INJ IV (23:13)
[2019-06-03] MEDS: ONDANSETRON 4 MG INJ IV (23:13)
[2019-06-03] MEDS: LIOTHYRONINE 5 MCG TAB PO (23:40)
[2019-06-04] MEDS ORDERED: INSULIN GLARGINE [LANTus] (100 UNITS/ML) SYG SC (00:08)
[2019-06-04] MEDS: ATORVASTATIN 80 MG TAB PO ×2 (00:55→21:36)
[2019-06-04] MEDS: LOSARTAN 50 MG TAB PO ×3 (00:55→21:36)
[2019-06-04] MEDS: ZINC SULFATE 220 MG CAP PO (00:55)
[2019-06-04] MEDS: METOPROLOL 50 MG TAB PO ×3 (00:56→21:37)
[2019-06-04] MEDS: LEVOTHYROXINE 100 MCG TAB PO (07:10)
[2019-06-04] MEDS: ACCU-CHEK XX ×4 (08:00→21:37)
[2019-06-04] MEDS: LINAGLIPTIN 5 MG TABLET PO (08:18)
[2019-06-04] MEDS: AMLODIPINE 5 MG TAB PO (08:19)
[2019-06-04] MEDS: ASCORBIC ACID 500 MG TAB PO (08:19)
[2019-06-04] MEDS: metFORMIN 500 MG TAB PO ×2 (08:20→17:38)
[2019-06-04] MEDS: INSULIN ASPART [NOVOLOG] 3 ML PEN SC ×7 (08:24→21:00)
[2019-06-04] MEDS: CITALOPRAM 20 MG TAB PO ×2 (09:00→12:11)
[2019-06-04] MEDS: CHLORTHALIDONE 25 MG TAB PO ×2 (09:00→12:11)
[2019-06-04] MEDS: LIOTHYRONINE 5 MCG TAB PO ×2 (09:00→23:02)
[2019-06-04] MEDS ORDERED: CITALOPRAM 20 MG TAB PO (09:00)
[2019-06-04] MEDS: INSULIN GLARGINE [LANTus] (100 UNITS/ML) SYG SC (21:40)
[2019-06-04] MEDS: HEPARIN 5,000 UNIT/1 ML VIAL SC (21:41)
[2019-06-05] MEDS: ACCU-CHEK XX ×5 (02:00→21:00)
[2019-06-05] MEDS: LEVOTHYROXINE 100 MCG TAB PO (06:25)
[2019-06-05 06:30] LABS: ADD MAN DIFF? NO
[2019-06-05 06:37] LABS: WHITE BLOOD COUNT 8.4 10^3/ul (4.8-10.8)
[2019-06-05 06:37] LABS: BASOPHILS % 0.2 % (0.0-2.0); EOSINOPHILS # 0.3 10^3/ul (0.0-0.5); EOSINOPHILS % 3.3 % (0.0-7.0); HEMATOCRIT 31.9 % (37.0-47.0); HEMOGLOBIN 9.6 g/dl (12.0-16.0); LYMPHOCYTES # 3.2 10^3/ul (0.8-2.9); LYMPHOCYTES % 37.6 % (15.0-51.0); MEAN CORPUSCULAR HEMOGLOBIN 28.7 pg (29.0-33.0); MEAN CORPUSCULAR HGB CONC 30.1 g/dl (32.0-37.0); MEAN CORPUSCULAR VOLUME 95.5 fl (82.0-101.0); MEAN PLATELET VOLUME 10.5 fl (7.4-10.4); MONOCYTE # 0.7 10^3/ul (0.3-0.9); MONOCYTES % 8.1 % (0.0-11.0); NEUTROPHIL # 4.2 10^3/ul (1.6-7.5); NEUTROPHILS % 50.2 % (39.0-77.0); PLATELET COUNT 264 10^3/UL (140-415); RED BLOOD COUNT 3.34 10^6/ul (4.20-5.40); RED CELL DISTRIBUTION WIDTH 15.8 % (11.5-14.5)
[2019-06-05 07:04] LABS: ANION GAP 6 (5-13); BLOOD UREA NITROGEN 44 mg/dl (7-20); CALCIUM 8.9 mg/dl (8.4-10.2); CARBON DIOXIDE 26 mmol/L (21-31); CHLORIDE 103 mmol/L (97-110); CREATININE 1.88 mg/dl (0.44-1.00); Estimated GFR 27 mL/min (>60); GLUCOSE 152 mg/dl (70-220); POTASSIUM 4.6 mmol/L (3.5-5.1); SODIUM 135 mmol/L (135-144)
[2019-06-05] MEDS: INSULIN ASPART [NOVOLOG] 3 ML PEN SC ×8 (08:16→21:28)
[2019-06-05] MEDS: HEPARIN 5,000 UNIT/1 ML VIAL SC ×2 (08:17→21:24)
[2019-06-05] MEDS: AMLODIPINE 5 MG TAB PO (08:17)
[2019-06-05] MEDS: LIOTHYRONINE 5 MCG TAB PO ×2 (08:17→21:19)
[2019-06-05] MEDS: LOSARTAN 50 MG TAB PO ×2 (08:18→21:18)
[2019-06-05] MEDS: CHLORTHALIDONE 25 MG TAB PO (08:18)
[2019-06-05] MEDS: LINAGLIPTIN 5 MG TABLET PO (08:18)
[2019-06-05] MEDS: CITALOPRAM 20 MG TAB PO (08:18)
[2019-06-05] MEDS: metFORMIN 500 MG TAB PO ×2 (08:18→17:41)
[2019-06-05] MEDS: METOPROLOL 50 MG TAB PO ×2 (08:19→21:19)
[2019-06-05] MEDS: MAGNESIUM HYDROXIDE 30ML CUP PO (16:40)
[2019-06-05] MEDS: LACTATED RINGER'S 500 ML IV (16:41)
[2019-06-05] MEDS: SOD FERRIC GLUC COMPLX 125 MG in SOD CHLORIDE 0.9% 100 ML IVPB (19:00)
[2019-06-05] MEDS: DOXAZOSIN 2 MG TAB PO (21:18)
[2019-06-05] MEDS: ATORVASTATIN 80 MG TAB PO (21:19)
[2019-06-05] MEDS: TERBINAFINE 250 MG TAB PO (21:19)
[2019-06-05] MEDS: INSULIN GLARGINE [LANTus] (100 UNITS/ML) SYG SC (21:23)
[2019-06-06] MEDS: ACCU-CHEK XX ×5 (02:00→21:00)
[2019-06-06] MEDS: LEVOTHYROXINE 100 MCG TAB PO (06:22)
[2019-06-06 06:41] LABS: ANION GAP 6 (5-13); BLOOD UREA NITROGEN 42 mg/dl (7-20); CALCIUM 9.5 mg/dl (8.4-10.2); CARBON DIOXIDE 26 mmol/L (21-31); CHLORIDE 105 mmol/L (97-110); CREATININE 1.73 mg/dl (0.44-1.00); Estimated GFR 29 mL/min (>60); GLUCOSE 132 mg/dl (70-220); POTASSIUM 4.8 mmol/L (3.5-5.1); SODIUM 137 mmol/L (135-144)
[2019-06-06] MEDS: LIOTHYRONINE 5 MCG TAB PO (08:45)
[2019-06-06] MEDS: CHLORTHALIDONE 25 MG TAB PO (08:46)
[2019-06-06] MEDS: INSULIN ASPART [NOVOLOG] 3 ML PEN SC ×7 (08:46→21:00)
[2019-06-06] MEDS: metFORMIN 500 MG TAB PO ×2 (08:46→17:55)
[2019-06-06] MEDS: HEPARIN 5,000 UNIT/1 ML VIAL SC ×2 (08:47→21:54)
[2019-06-06] MEDS: TERBINAFINE 250 MG TAB PO ×2 (08:48→21:50)
[2019-06-06] MEDS: LINAGLIPTIN 5 MG TABLET PO (08:48)
[2019-06-06] MEDS: LOSARTAN 50 MG TAB PO ×2 (08:48→21:50)
[2019-06-06] MEDS: CITALOPRAM 20 MG TAB PO (08:48)
[2019-06-06] MEDS: METOPROLOL 50 MG TAB PO ×2 (08:49→21:50)
[2019-06-06] MEDS: AMLODIPINE 2.5 MG TAB PO (08:49)
[2019-06-06] MEDS: SOD FERRIC GLUC COMPLX 125 MG in SOD CHLORIDE 0.9% 100 ML IVPB (13:21)
[2019-06-06] MEDS: ATORVASTATIN 80 MG TAB PO (21:50)
[2019-06-06] MEDS: DOXAZOSIN 2 MG TAB PO (21:50)
[2019-06-06] MEDS: INSULIN GLARGINE [LANTus] (100 UNITS/ML) SYG SC (21:54)
[2019-06-07] MEDS: LIOTHYRONINE 5 MCG TAB PO ×3 (01:26→21:50)
[2019-06-07] MEDS: ACCU-CHEK XX ×5 (02:00→21:00)
[2019-06-07] MEDS: LEVOTHYROXINE 100 MCG TAB PO (06:34)
[2019-06-07] MEDS: INSULIN ASPART [NOVOLOG] 3 ML PEN SC ×7 (08:00→21:00)
[2019-06-07] MEDS: TERBINAFINE 250 MG TAB PO ×2 (08:17→21:50)
[2019-06-07] MEDS: METOPROLOL 50 MG TAB PO ×2 (08:17→21:51)
[2019-06-07] MEDS: metFORMIN 500 MG TAB PO ×2 (08:17→17:29)
[2019-06-07] MEDS: LOSARTAN 50 MG TAB PO ×2 (08:18→21:51)
[2019-06-07] MEDS: CHLORTHALIDONE 25 MG TAB PO (08:18)
[2019-06-07] MEDS: LINAGLIPTIN 5 MG TABLET PO (08:18)
[2019-06-07] MEDS: CITALOPRAM 20 MG TAB PO (08:18)
[2019-06-07] MEDS: HEPARIN 5,000 UNIT/1 ML VIAL SC ×2 (08:21→21:54)
[2019-06-07] MEDS: SOD FERRIC GLUC COMPLX 125 MG in SOD CHLORIDE 0.9% 100 ML IVPB (13:17)
[2019-06-07] MEDS: ATORVASTATIN 80 MG TAB PO (21:50)
[2019-06-07] MEDS: DOXAZOSIN 2 MG TAB PO (21:51)
[2019-06-07] MEDS: INSULIN GLARGINE [LANTus] (100 UNITS/ML) SYG SC (21:54)
[2019-06-08] MEDS: ACCU-CHEK XX ×5 (01:32→21:00)
[2019-06-08 06:09] LABS: ADD MAN DIFF? NO
[2019-06-08 06:14] LABS: BASOPHILS % 0.3 % (0.0-2.0); EOSINOPHILS # 0.3 10^3/ul (0.0-0.5); EOSINOPHILS % 2.6 % (0.0-7.0); HEMATOCRIT 32.5 % (37.0-47.0); LYMPHOCYTES # 3.5 10^3/ul (0.8-2.9); LYMPHOCYTES % 34.5 % (15.0-51.0); MEAN CORPUSCULAR HEMOGLOBIN 29.2 pg (29.0-33.0); MEAN CORPUSCULAR HGB CONC 30.8 g/dl (32.0-37.0); MEAN PLATELET VOLUME 10.6 fl (7.4-10.4); MONOCYTE # 0.8 10^3/ul (0.3-0.9); MONOCYTES % 8.3 % (0.0-11.0); NEUTROPHIL # 5.5 10^3/ul (1.6-7.5); NEUTROPHILS % 53.9 % (39.0-77.0); PLATELET COUNT 262 10^3/UL (140-415); RED BLOOD COUNT 3.42 10^6/ul (4.20-5.40); RED CELL DISTRIBUTION WIDTH 15.8 % (11.5-14.5)
[2019-06-08 06:14] LABS: WHITE BLOOD COUNT 10.1 10^3/ul (4.8-10.8)
[2019-06-08] MEDS: LEVOTHYROXINE 100 MCG TAB PO (06:45)
[2019-06-08 06:56] LABS: ALANINE AMINOTRANSFERASE 13 IU/L (13-69); ALBUMIN 3.2 g/dl (3.3-4.9); ALBUMIN/GLOBULIN RATIO 0.94; ALKALINE PHOSPHATASE 92 IU/L (42-121); ANION GAP 7 (5-13); ASPARTATE AMINO TRANSFERASE 24 IU/L (15-46); BILIRUBIN,INDIRECT 0.3 mg/dl (0-1.1); BILIRUBIN,TOTAL 0.3 mg/dl (0.2-1.3); BLOOD UREA NITROGEN 41 mg/dl (7-20); CALCIUM 9.6 mg/dl (8.4-10.2); CARBON DIOXIDE 26 mmol/L (21-31); CHLORIDE 105 mmol/L (97-110); CREATININE 1.57 mg/dl (0.44-1.00); Estimated GFR 33 mL/min (>60); GLUCOSE 118 mg/dl (70-220); POTASSIUM 4.7 mmol/L (3.5-5.1); SODIUM 138 mmol/L (135-144); TOTAL PROTEIN 6.6 g/dl (6.1-8.1)
[2019-06-08 07:43] LABS: ERYTHROCYTE SEDIMENTATION RATE 52 mm/Hr (0-30)
[2019-06-08] MEDS: INSULIN ASPART [NOVOLOG] 3 ML PEN SC ×7 (08:00→21:00)
[2019-06-08] MEDS: CITALOPRAM 20 MG TAB PO (08:23)
[2019-06-08] MEDS: LIOTHYRONINE 5 MCG TAB PO ×2 (08:23→21:51)
[2019-06-08] MEDS: LINAGLIPTIN 5 MG TABLET PO (08:23)
[2019-06-08] MEDS: TERBINAFINE 250 MG TAB PO ×2 (08:23→21:51)
[2019-06-08] MEDS: metFORMIN 500 MG TAB PO ×2 (08:24→17:47)
[2019-06-08] MEDS: CHLORTHALIDONE 25 MG TAB PO (08:24)
[2019-06-08] MEDS: METOPROLOL 50 MG TAB PO ×2 (08:25→21:51)
[2019-06-08] MEDS: LOSARTAN 50 MG TAB PO ×2 (08:25→21:52)
[2019-06-08] MEDS: HEPARIN 5,000 UNIT/1 ML VIAL SC ×2 (08:27→21:51)
[2019-06-08] MEDS: SOD FERRIC GLUC COMPLX 125 MG in SOD CHLORIDE 0.9% 100 ML IVPB (12:31)
[2019-06-08] MEDS: ACETAMINOPHEN 325 MG TAB PO (16:50)
[2019-06-08] MEDS: DOCUSATE SODIUM 100 MG CAP PO ×2 (16:50→21:51)
[2019-06-08] MEDS: INSULIN GLARGINE [LANTus] (100 UNITS/ML) SYG SC (21:50)
[2019-06-08] MEDS: ATORVASTATIN 80 MG TAB PO (21:51)
[2019-06-08] MEDS: DOXAZOSIN 2 MG TAB PO (21:52)
[2019-06-09] MEDS: ACCU-CHEK XX ×5 (01:11→21:00)
[2019-06-09] MEDS: LEVOTHYROXINE 100 MCG TAB PO (06:23)
[2019-06-09] MEDS: INSULIN ASPART [NOVOLOG] 3 ML PEN SC ×7 (08:00→21:00)
[2019-06-09] MEDS: LIOTHYRONINE 5 MCG TAB PO ×2 (08:31→21:11)
[2019-06-09] MEDS: metFORMIN 500 MG TAB PO ×2 (08:31→17:50)
[2019-06-09] MEDS: METOPROLOL 50 MG TAB PO ×2 (08:31→21:13)
[2019-06-09] MEDS: LOSARTAN 50 MG TAB PO ×2 (08:31→21:12)
[2019-06-09] MEDS: LINAGLIPTIN 5 MG TABLET PO (08:32)
[2019-06-09] MEDS: TERBINAFINE 250 MG TAB PO ×2 (08:32→21:12)
[2019-06-09] MEDS: CITALOPRAM 20 MG TAB PO (08:32)
[2019-06-09] MEDS: CHLORTHALIDONE 25 MG TAB PO (08:32)
[2019-06-09] MEDS: DOCUSATE SODIUM 100 MG CAP PO ×2 (08:32→21:11)
[2019-06-09] MEDS: HEPARIN 5,000 UNIT/1 ML VIAL SC ×2 (08:33→21:21)
[2019-06-09] MEDS: ACETAMINOPHEN 325 MG TAB PO (09:37)
[2019-06-09] MEDS: MAGNESIUM CITRATE 300 ML BTL PO (17:50)
[2019-06-09] MEDS: INSULIN GLARGINE [LANTus] (100 UNITS/ML) SYG SC ×2 (21:00→22:25)
[2019-06-09] MEDS: ATORVASTATIN 80 MG TAB PO (21:12)
[2019-06-09] MEDS: DOXAZOSIN 2 MG TAB PO (21:12)
[2019-06-10] MEDS: ACCU-CHEK XX ×3 (02:00→11:30)
[2019-06-10] MEDS: LEVOTHYROXINE 100 MCG TAB PO (06:41)
[2019-06-10] MEDS: INSULIN ASPART [NOVOLOG] 3 ML PEN SC ×4 (08:00→12:51)
[2019-06-10] MEDS: LIOTHYRONINE 5 MCG TAB PO (08:18)
[2019-06-10] MEDS: TERBINAFINE 250 MG TAB PO (08:19)
[2019-06-10] MEDS: LINAGLIPTIN 5 MG TABLET PO (08:19)
[2019-06-10] MEDS: CHLORTHALIDONE 25 MG TAB PO (08:19)
[2019-06-10] MEDS: CITALOPRAM 20 MG TAB PO (08:19)
[2019-06-10] MEDS: METOPROLOL 50 MG TAB PO (08:19)
[2019-06-10] MEDS: LOSARTAN 50 MG TAB PO (08:20)
[2019-06-10] MEDS: DOCUSATE SODIUM 100 MG CAP PO (08:20)
[2019-06-10] MEDS: HEPARIN 5,000 UNIT/1 ML VIAL SC (08:22)
[2019-06-10] MEDS: metFORMIN 500 MG TAB PO (08:27)
== END 2019-06-10 17:50 | DRG 464 ==
LOC: E/R 10:42 → 2NE 12:35
PROC: 0QWGX5Z Revision of External Fixation Device in Right Tibia, External Approach (ICD-10-PCS; principal; 2019-06-03 21:18)
PROC: 0HRMXK3 Replacement of Right Foot Skin with Nonautologous Tissue Substitute, Full Thickness, External Approach (ICD-10-PCS; 2019-06-03 21:18)
PROC: 0KBV0ZZ Excision of Right Foot Muscle, Open Approach (ICD-10-PCS; 2019-06-03 21:18)
DX: T84.213A Breakdown (mechanical) of internal fixation device of bones of foot and toes, initial encounter (principal); M86.9 Osteomyelitis, unspecified; E11.610 Type 2 diabetes mellitus with diabetic neuropathic arthropathy; E11.42 Type 2 diabetes mellitus with diabetic polyneuropathy; E11.621 Type 2 diabetes mellitus with foot ulcer; E66.01 Morbid (severe) obesity due to excess calories; E78.5 Hyperlipidemia, unspecified; E03.9 Hypothyroidism, unspecified; I10 Essential (primary) hypertension; Y84.8 Other medical procedures as the cause of abnormal reaction of the patient, or of later complication, without mention of misadventure at the time of the procedure; Y92.019 Unspecified place in single-family (private) house as the place of occurrence of the external cause; Z68.38 Body mass index [BMI] 38.0-38.9, adult; Z79.4 Long term (current) use of insulin
CPT/HCPCS: 11042; 71045; 73600; 73630; 80048; 80053; 82962; 84443; 85025; 85610; 85651; 85730; 93005; 97110; 97162; 97530; 99285-25

== ENCOUNTER 2019-06-10 17:54 | Inpatient (IN) | payer MEDICARE, OTHER ==
[2019-06-10] MEDS ORDERED: BISACODYL 10 MG SUPP PR (18:00)
[2019-06-10] MEDS ORDERED: LACTULOSE 30ML CUP PO (18:00)
[2019-06-10] MEDS ORDERED: MAGNESIUM HYDROXIDE 30ML CUP PO (18:00)
[2019-06-10] MEDS ORDERED: PENDING SANTYL ORDER FOR WOUND CARE XX (18:00)
[2019-06-10] MEDS ORDERED: GLUCAGON 1 MG INJ IM (18:30)
[2019-06-10] MEDS ORDERED: GLUCOSE GEL 15 GRAM TUBE BUCCAL (18:30)
[2019-06-10] MEDS ORDERED: GLUCOSE GEL 15 GRAM TUBE PO ×2 (18:30)
[2019-06-10] MEDS ORDERED: DEXTROSE 50% 50 ML SYRINGE IV ×2 (18:30)
[2019-06-10] MEDS ORDERED: ACCU-CHEK XX ×2 (21:00)
[2019-06-10] MEDS: INSULIN ASPART [NOVOLOG] 3 ML PEN SC (21:00)
[2019-06-10] MEDS: TERBINAFINE 250 MG TAB PO (21:14)
[2019-06-10] MEDS: SENNA TAB PO (21:14)
[2019-06-10] MEDS: ATORVASTATIN 80 MG TAB PO (21:15)
[2019-06-10] MEDS: DOCUSATE SODIUM 100 MG CAP PO (21:15)
[2019-06-10] MEDS: APIXABAN 5 MG TABLET PO (21:16)
[2019-06-10] MEDS: LIOTHYRONINE 5 MCG TAB PO (21:16)
[2019-06-10] MEDS: METOPROLOL 50 MG TAB PO (21:17)
[2019-06-10] MEDS: LOSARTAN 50 MG TAB PO (21:17)
[2019-06-10] MEDS: DOXAZOSIN 4 MG TAB PO (21:17)
[2019-06-10] MEDS: INSULIN GLARGINE [LANTus] (100 UNITS/ML) SYG SC (21:25)
[2019-06-10] MEDS: ACCU-CHEK XX (21:25)
[2019-06-11] MEDS: ACCU-CHEK XX ×5 (02:00→21:35)
[2019-06-11] MEDS: LEVOTHYROXINE 100 MCG TAB PO (06:57)
[2019-06-11 07:24] LABS: ADD MAN DIFF? NO
[2019-06-11 07:29] LABS: WHITE BLOOD COUNT 8.7 10^3/ul (4.8-10.8)
[2019-06-11 07:29] LABS: BASOPHILS % 0.5 % (0.0-2.0); EOSINOPHILS # 0.3 10^3/ul (0.0-0.5); EOSINOPHILS % 2.9 % (0.0-7.0); HEMATOCRIT 32.1 % (37.0-47.0); HEMOGLOBIN 9.7 g/dl (12.0-16.0); LYMPHOCYTES # 3.3 10^3/ul (0.8-2.9); LYMPHOCYTES % 37.9 % (15.0-51.0); MEAN CORPUSCULAR HEMOGLOBIN 29.1 pg (29.0-33.0); MEAN CORPUSCULAR HGB CONC 30.2 g/dl (32.0-37.0); MEAN CORPUSCULAR VOLUME 96.4 fl (82.0-101.0); MEAN PLATELET VOLUME 10.5 fl (7.4-10.4); MONOCYTE # 0.8 10^3/ul (0.3-0.9); MONOCYTES % 9.1 % (0.0-11.0); NEUTROPHIL # 4.3 10^3/ul (1.6-7.5); NEUTROPHILS % 48.9 % (39.0-77.0); PLATELET COUNT 251 10^3/UL (140-415); RED BLOOD COUNT 3.33 10^6/ul (4.20-5.40)
[2019-06-11] MEDS: INSULIN ASPART [NOVOLOG] 3 ML PEN SC ×7 (07:35→21:00)
[2019-06-11] MEDS: metFORMIN 500 MG TAB PO ×2 (07:40→17:18)
[2019-06-11 07:55] LABS: ALANINE AMINOTRANSFERASE 33 IU/L (13-69); ALBUMIN 3.1 g/dl (3.3-4.9); ALBUMIN/GLOBULIN RATIO 0.93; ALKALINE PHOSPHATASE 90 IU/L (42-121); ANION GAP 5 (5-13); ASPARTATE AMINO TRANSFERASE 36 IU/L (15-46); BILIRUBIN,INDIRECT 0.3 mg/dl (0-1.1); BILIRUBIN,TOTAL 0.3 mg/dl (0.2-1.3); BLOOD UREA NITROGEN 49 mg/dl (7-20); CALCIUM 9.2 mg/dl (8.4-10.2); CARBON DIOXIDE 26 mmol/L (21-31); CHLORIDE 105 mmol/L (97-110); CREATININE 1.67 mg/dl (0.44-1.00); Estimated GFR 31 mL/min (>60); GLUCOSE 121 mg/dl (70-220); POTASSIUM 4.5 mmol/L (3.5-5.1); SODIUM 136 mmol/L (135-144); TOTAL PROTEIN 6.4 g/dl (6.1-8.1)
[2019-06-11] MEDS: LIOTHYRONINE 5 MCG TAB PO ×2 (08:48→21:35)
[2019-06-11] MEDS: TERBINAFINE 250 MG TAB PO ×2 (08:48→21:35)
[2019-06-11] MEDS: DOCUSATE SODIUM 100 MG CAP PO ×2 (08:48→21:35)
[2019-06-11] MEDS: LINAGLIPTIN 5 MG TABLET PO (08:48)
[2019-06-11] MEDS: CITALOPRAM 20 MG TAB PO (08:48)
[2019-06-11] MEDS: APIXABAN 5 MG TABLET PO ×2 (08:48→21:37)
[2019-06-11] MEDS: CHLORTHALIDONE 25 MG TAB PO (08:48)
[2019-06-11] MEDS: LOSARTAN 50 MG TAB PO ×2 (08:49→21:37)
[2019-06-11] MEDS: METOPROLOL 50 MG TAB PO ×2 (08:49→21:37)
[2019-06-11] MEDS: ACETAMINOPHEN 325 MG TAB PO (14:16)
[2019-06-11 17:44] LABS: ADD UMIC YES; UR ASCORBIC ACID NEGATIVE (NEGATIVE); UR BILIRUBIN (Dip) NEGATIVE (NEGATIVE); UR BLOOD (Dip) 2+ mg/dL (NEGATIVE); UR CLARITY SLIGHTLY CLOUDY (CLEAR); UR COLOR YELLOW (YELLOW); UR GLUCOSE (Dip) NEGATIVE (NEGATIVE); UR KETONES (Dip) NEGATIVE (NEGATIVE); UR LEUKOCYTE ESTERASE (Dip) NEGATIVE Leu/ul (NEGATIVE); UR NITRITE (Dip) NEGATIVE (NEGATIVE); UR RBC 1 /HPF (0-5); UR SPECIFIC GRAVITY (Dip) 1.012 (1.003-1.030); UR SQUAMOUS EPITHELIAL CELL FEW /HPF (FEW); UR TOTAL PROTEIN (Dip) NEGATIVE (NEGATIVE); UR UROBILINOGEN (Dip) NEGATIVE (NEGATIVE); UR WBC 2 /HPF (0-5)
[2019-06-11] MEDS: ATORVASTATIN 80 MG TAB PO (21:35)
[2019-06-11] MEDS: SENNA TAB PO (21:35)
[2019-06-11] MEDS: DOXAZOSIN 4 MG TAB PO (21:35)
[2019-06-11] MEDS: INSULIN GLARGINE [LANTus] (100 UNITS/ML) SYG SC (21:36)
[2019-06-12] MEDS: ACCU-CHEK XX ×5 (02:00→21:56)
[2019-06-12] MEDS: LEVOTHYROXINE 100 MCG TAB PO (06:26)
[2019-06-12] MEDS: ACETAMINOPHEN 325 MG TAB PO (08:01)
[2019-06-12] MEDS: metFORMIN 500 MG TAB PO ×2 (08:34→17:36)
[2019-06-12] MEDS: INSULIN ASPART [NOVOLOG] 3 ML PEN SC ×7 (08:35→21:00)
[2019-06-12] MEDS: APIXABAN 5 MG TABLET PO ×2 (08:37→21:49)
[2019-06-12] MEDS: LIOTHYRONINE 5 MCG TAB PO ×2 (08:37→21:50)
[2019-06-12] MEDS: TERBINAFINE 250 MG TAB PO ×2 (08:37→21:50)
[2019-06-12] MEDS: CITALOPRAM 20 MG TAB PO (08:38)
[2019-06-12] MEDS: DOCUSATE SODIUM 100 MG CAP PO ×2 (08:39→21:50)
[2019-06-12] MEDS: LINAGLIPTIN 5 MG TABLET PO (08:40)
[2019-06-12] MEDS: METOPROLOL 50 MG TAB PO ×2 (08:48→21:50)
[2019-06-12] MEDS: CHLORTHALIDONE 25 MG TAB PO (08:48)
[2019-06-12] MEDS: LOSARTAN 50 MG TAB PO ×2 (08:48→21:49)
[2019-06-12] MEDS: FOSFOMYCIN 3 GM PACKET PO (21:49)
[2019-06-12] MEDS: DOXAZOSIN 4 MG TAB PO (21:50)
[2019-06-12] MEDS: SENNA TAB PO (21:50)
[2019-06-12] MEDS: ATORVASTATIN 80 MG TAB PO (21:50)
[2019-06-12] MEDS: INSULIN GLARGINE [LANTus] (100 UNITS/ML) SYG SC (21:53)
[2019-06-13] MEDS: ACCU-CHEK XX ×6 (02:00→20:43)
[2019-06-13] MEDS: LEVOTHYROXINE 100 MCG TAB PO (05:45)
[2019-06-13] MEDS: LINAGLIPTIN 5 MG TABLET PO (08:07)
[2019-06-13] MEDS: metFORMIN 500 MG TAB PO ×2 (08:07→17:45)
[2019-06-13] MEDS: INSULIN ASPART [NOVOLOG] 3 ML PEN SC ×8 (08:09→20:39)
[2019-06-13] MEDS: CITALOPRAM 20 MG TAB PO (08:15)
[2019-06-13] MEDS: DOCUSATE SODIUM 100 MG CAP PO ×2 (08:15→20:39)
[2019-06-13] MEDS: TERBINAFINE 250 MG TAB PO ×2 (08:16→20:39)
[2019-06-13] MEDS: APIXABAN 5 MG TABLET PO ×2 (08:16→20:38)
[2019-06-13] MEDS: LIOTHYRONINE 5 MCG TAB PO ×2 (08:16→20:39)
[2019-06-13] MEDS: CHLORTHALIDONE 25 MG TAB PO (09:36)
[2019-06-13] MEDS: METOPROLOL 50 MG TAB PO ×2 (09:36→20:39)
[2019-06-13] MEDS: LOSARTAN 50 MG TAB PO ×2 (09:36→20:39)
[2019-06-13] MEDS: TRIMETHOPRIM/SULFAMETHOX (DS) TAB PO (20:38)
[2019-06-13] MEDS: SENNA TAB PO (20:38)
[2019-06-13] MEDS: ATORVASTATIN 80 MG TAB PO (20:39)
[2019-06-13] MEDS: DOXAZOSIN 4 MG TAB PO (20:39)
[2019-06-13] MEDS: INSULIN GLARGINE [LANTus] (100 UNITS/ML) SYG SC (20:43)
[2019-06-14] MEDS: ACCU-CHEK XX ×5 (02:00→21:32)
[2019-06-14] MEDS: LEVOTHYROXINE 100 MCG TAB PO (06:14)
[2019-06-14] MEDS: metFORMIN 500 MG TAB PO ×2 (07:57→17:37)
[2019-06-14] MEDS: INSULIN ASPART [NOVOLOG] 3 ML PEN SC ×7 (07:58→21:00)
[2019-06-14] MEDS: LINAGLIPTIN 5 MG TABLET PO (08:48)
[2019-06-14] MEDS: CHLORTHALIDONE 25 MG TAB PO (08:49)
[2019-06-14] MEDS: CITALOPRAM 20 MG TAB PO (08:49)
[2019-06-14] MEDS: DOCUSATE SODIUM 100 MG CAP PO ×2 (08:50→21:23)
[2019-06-14] MEDS: TERBINAFINE 250 MG TAB PO ×2 (08:50→21:23)
[2019-06-14] MEDS: APIXABAN 5 MG TABLET PO ×2 (08:50→21:23)
[2019-06-14] MEDS: LOSARTAN 50 MG TAB PO ×2 (08:50→21:24)
[2019-06-14] MEDS: TRIMETHOPRIM/SULFAMETHOX (DS) TAB PO ×2 (08:50→21:23)
[2019-06-14] MEDS: LIOTHYRONINE 5 MCG TAB PO ×2 (08:50→21:23)
[2019-06-14] MEDS: METOPROLOL 50 MG TAB PO ×2 (08:50→21:24)
[2019-06-14] MEDS: SENNA TAB PO (21:24)
[2019-06-14] MEDS: ATORVASTATIN 80 MG TAB PO (21:24)
[2019-06-14] MEDS: DOXAZOSIN 4 MG TAB PO (21:25)
[2019-06-14] MEDS: INSULIN GLARGINE [LANTus] (100 UNITS/ML) SYG SC (21:31)
[2019-06-15] MEDS: ACCU-CHEK XX ×5 (01:25→21:11)
[2019-06-15] MEDS: LEVOTHYROXINE 100 MCG TAB PO (06:40)
[2019-06-15] MEDS: INSULIN ASPART [NOVOLOG] 3 ML PEN SC ×7 (07:35→21:00)
[2019-06-15] MEDS: LINAGLIPTIN 5 MG TABLET PO (08:05)
[2019-06-15] MEDS: metFORMIN 500 MG TAB PO ×2 (08:05→17:26)
[2019-06-15] MEDS: TRIMETHOPRIM/SULFAMETHOX (DS) TAB PO ×2 (08:49→21:07)
[2019-06-15] MEDS: CITALOPRAM 20 MG TAB PO (08:50)
[2019-06-15] MEDS: CHLORTHALIDONE 25 MG TAB PO (08:51)
[2019-06-15] MEDS: APIXABAN 5 MG TABLET PO ×2 (08:51→21:09)
[2019-06-15] MEDS: LIOTHYRONINE 5 MCG TAB PO ×2 (08:51→21:09)
[2019-06-15] MEDS: DOCUSATE SODIUM 100 MG CAP PO ×2 (08:51→21:09)
[2019-06-15] MEDS: TERBINAFINE 250 MG TAB PO ×2 (08:51→21:07)
[2019-06-15] MEDS: METOPROLOL 50 MG TAB PO ×2 (08:53→21:10)
[2019-06-15] MEDS: LOSARTAN 50 MG TAB PO ×2 (08:55→21:10)
[2019-06-15] MEDS: SENNA TAB PO (21:00)
[2019-06-15] MEDS: DOXAZOSIN 4 MG TAB PO (21:09)
[2019-06-15] MEDS: ATORVASTATIN 80 MG TAB PO (21:11)
[2019-06-15] MEDS: INSULIN GLARGINE [LANTus] (100 UNITS/ML) SYG SC (21:13)
[2019-06-16] MEDS: ACCU-CHEK XX ×5 (02:00→21:37)
[2019-06-16] MEDS: LEVOTHYROXINE 100 MCG TAB PO (06:41)
[2019-06-16 07:36] LABS: ADD MAN DIFF? NO
[2019-06-16 07:40] LABS: WHITE BLOOD COUNT 9.7 10^3/ul (4.8-10.8)
[2019-06-16 07:40] LABS: BASOPHILS % 0.4 % (0.0-2.0); EOSINOPHILS # 0.4 10^3/ul (0.0-0.5); HEMATOCRIT 32.5 % (37.0-47.0); HEMOGLOBIN 9.8 g/dl (12.0-16.0); LYMPHOCYTES # 2.9 10^3/ul (0.8-2.9); LYMPHOCYTES % 30.3 % (15.0-51.0); MEAN CORPUSCULAR HEMOGLOBIN 29.3 pg (29.0-33.0); MEAN CORPUSCULAR HGB CONC 30.2 g/dl (32.0-37.0); MEAN PLATELET VOLUME 10.9 fl (7.4-10.4); MONOCYTE # 0.7 10^3/ul (0.3-0.9); MONOCYTES % 7.5 % (0.0-11.0); NEUTROPHIL # 5.5 10^3/ul (1.6-7.5); NEUTROPHILS % 57.4 % (39.0-77.0); PLATELET COUNT 281 10^3/UL (140-415); RED BLOOD COUNT 3.35 10^6/ul (4.20-5.40); RED CELL DISTRIBUTION WIDTH 16.8 % (11.5-14.5)
[2019-06-16 08:11] LABS: ANION GAP 5 (5-13); BLOOD UREA NITROGEN 60 mg/dl (7-20); CALCIUM 9.2 mg/dl (8.4-10.2); CARBON DIOXIDE 25 mmol/L (21-31); CHLORIDE 107 mmol/L (97-110); CREATININE 2.22 mg/dl (0.44-1.00); Estimated GFR 22 mL/min (>60); GLUCOSE 137 mg/dl (70-220); SODIUM 137 mmol/L (135-144)
[2019-06-16] MEDS: LINAGLIPTIN 5 MG TABLET PO (08:16)
[2019-06-16] MEDS: metFORMIN 500 MG TAB PO ×2 (08:16→17:42)
[2019-06-16 08:18] LABS: POTASSIUM 5.2 mmol/L (3.5-5.1)
[2019-06-16] MEDS: INSULIN ASPART [NOVOLOG] 3 ML PEN SC ×7 (08:18→21:00)
[2019-06-16] MEDS: LIOTHYRONINE 5 MCG TAB PO ×2 (10:56→20:20)
[2019-06-16] MEDS: LOSARTAN 50 MG TAB PO ×2 (10:56→20:20)
[2019-06-16] MEDS: APIXABAN 5 MG TABLET PO ×2 (10:57→20:20)
[2019-06-16] MEDS: CITALOPRAM 20 MG TAB PO (10:57)
[2019-06-16] MEDS: TRIMETHOPRIM/SULFAMETHOX (DS) TAB PO (10:57)
[2019-06-16] MEDS: TERBINAFINE 250 MG TAB PO ×2 (10:57→20:20)
[2019-06-16] MEDS: CHLORTHALIDONE 25 MG TAB PO (10:58)
[2019-06-16] MEDS: DOCUSATE SODIUM 100 MG CAP PO ×2 (10:58→20:21)
[2019-06-16] MEDS: METOPROLOL 50 MG TAB PO ×2 (10:59→20:21)
[2019-06-16] MEDS: ACETAMINOPHEN 325 MG TAB PO (12:03)
[2019-06-16] MEDS: DOXAZOSIN 4 MG TAB PO (20:20)
[2019-06-16] MEDS: ATORVASTATIN 80 MG TAB PO (20:20)
[2019-06-16] MEDS: SENNA TAB PO (20:21)
[2019-06-16] MEDS: INSULIN GLARGINE [LANTus] (100 UNITS/ML) SYG SC (20:23)
[2019-06-17] MEDS: ACCU-CHEK XX ×5 (02:00→21:00)
[2019-06-17] MEDS: LEVOTHYROXINE 100 MCG TAB PO (06:23)
[2019-06-17] MEDS: INSULIN ASPART [NOVOLOG] 3 ML PEN SC ×7 (07:35→21:00)
[2019-06-17] MEDS: metFORMIN 500 MG TAB PO ×2 (07:51→17:22)
[2019-06-17] MEDS: DOCUSATE SODIUM 100 MG CAP PO ×2 (09:07→20:15)
[2019-06-17] MEDS: TERBINAFINE 250 MG TAB PO (09:07)
[2019-06-17] MEDS: LIOTHYRONINE 5 MCG TAB PO ×2 (09:07→20:15)
[2019-06-17] MEDS: LINAGLIPTIN 5 MG TABLET PO (09:07)
[2019-06-17] MEDS: TRIMETHOPRIM/SULFAMETHOX (DS) TAB PO (09:08)
[2019-06-17] MEDS: CHLORTHALIDONE 25 MG TAB PO (09:08)
[2019-06-17] MEDS: LOSARTAN 50 MG TAB PO ×2 (09:09→20:16)
[2019-06-17] MEDS: APIXABAN 5 MG TABLET PO ×2 (09:09→20:16)
[2019-06-17] MEDS: METOPROLOL 50 MG TAB PO ×2 (09:09→20:17)
[2019-06-17] MEDS: CITALOPRAM 20 MG TAB PO (09:13)
[2019-06-17] MEDS: ACETAMINOPHEN 325 MG TAB PO (09:13)
[2019-06-17] MEDS: ATORVASTATIN 80 MG TAB PO (20:15)
[2019-06-17] MEDS: SENNA TAB PO (20:16)
[2019-06-17] MEDS: DOXAZOSIN 4 MG TAB PO (20:17)
[2019-06-17] MEDS: INSULIN GLARGINE [LANTus] (100 UNITS/ML) SYG SC (20:44)
[2019-06-18] MEDS: ACCU-CHEK XX ×5 (02:00→21:00)
[2019-06-18] MEDS: LEVOTHYROXINE 100 MCG TAB PO (05:44)
[2019-06-18] MEDS: INSULIN ASPART [NOVOLOG] 3 ML PEN SC ×7 (07:35→21:00)
[2019-06-18] MEDS: metFORMIN 500 MG TAB PO ×2 (08:25→17:21)
[2019-06-18] MEDS: TRIMETHOPRIM/SULFAMETHOX (DS) TAB PO (10:23)
[2019-06-18] MEDS: LINAGLIPTIN 5 MG TABLET PO (10:23)
[2019-06-18] MEDS: LIOTHYRONINE 5 MCG TAB PO ×2 (10:23→21:01)
[2019-06-18] MEDS: LOSARTAN 50 MG TAB PO ×2 (10:24→21:01)
[2019-06-18] MEDS: CITALOPRAM 20 MG TAB PO (10:24)
[2019-06-18] MEDS: DOCUSATE SODIUM 100 MG CAP PO ×2 (10:24→21:00)
[2019-06-18] MEDS: APIXABAN 5 MG TABLET PO ×2 (10:25→21:01)
[2019-06-18] MEDS: METOPROLOL 50 MG TAB PO ×2 (10:25→21:01)
[2019-06-18] MEDS: CHLORTHALIDONE 25 MG TAB PO (10:26)
[2019-06-18] MEDS: SENNA TAB PO (21:00)
[2019-06-18] MEDS: ATORVASTATIN 80 MG TAB PO (21:01)
[2019-06-18] MEDS: DOXAZOSIN 4 MG TAB PO (21:02)
[2019-06-18] MEDS: INSULIN GLARGINE [LANTus] (100 UNITS/ML) SYG SC (21:09)
[2019-06-19] MEDS: ACCU-CHEK XX ×5 (02:00→20:57)
[2019-06-19] MEDS: LEVOTHYROXINE 100 MCG TAB PO (05:41)
[2019-06-19] MEDS: INSULIN ASPART [NOVOLOG] 3 ML PEN SC ×7 (07:35→20:57)
[2019-06-19] MEDS: metFORMIN 500 MG TAB PO ×2 (08:14→17:28)
[2019-06-19] MEDS: LINAGLIPTIN 5 MG TABLET PO (08:14)
[2019-06-19] MEDS: CHLORTHALIDONE 25 MG TAB PO (09:00)
[2019-06-19] MEDS: LOSARTAN 50 MG TAB PO ×2 (09:00→20:57)
[2019-06-19] MEDS: DOCUSATE SODIUM 100 MG CAP PO ×2 (09:00→20:56)
[2019-06-19] MEDS: METOPROLOL 50 MG TAB PO ×2 (09:00→20:57)
[2019-06-19] MEDS: LIOTHYRONINE 5 MCG TAB PO ×2 (10:04→20:57)
[2019-06-19] MEDS: TRIMETHOPRIM/SULFAMETHOX (DS) TAB PO (10:04)
[2019-06-19] MEDS: APIXABAN 5 MG TABLET PO ×2 (10:04→20:57)
[2019-06-19] MEDS: CITALOPRAM 20 MG TAB PO (10:04)
[2019-06-19] MEDS: ACETAMINOPHEN 325 MG TAB PO (13:18)
[2019-06-19] MEDS: SENNA TAB PO (20:56)
[2019-06-19] MEDS: ATORVASTATIN 80 MG TAB PO (20:56)
[2019-06-19] MEDS: DOXAZOSIN 4 MG TAB PO (20:57)
[2019-06-19] MEDS: INSULIN GLARGINE [LANTus] (100 UNITS/ML) SYG SC (21:00)
[2019-06-20] MEDS: ACCU-CHEK XX ×4 (02:00→17:05)
[2019-06-20] MEDS: LEVOTHYROXINE 100 MCG TAB PO (06:23)
[2019-06-20] MEDS: INSULIN ASPART [NOVOLOG] 3 ML PEN SC ×6 (07:34→17:11)
[2019-06-20] MEDS: LINAGLIPTIN 5 MG TABLET PO (07:46)
[2019-06-20] MEDS: metFORMIN 500 MG TAB PO ×2 (07:47→17:11)
[2019-06-20] MEDS: DOCUSATE SODIUM 100 MG CAP PO (08:27)
[2019-06-20] MEDS: METOPROLOL 50 MG TAB PO (08:35)
[2019-06-20] MEDS: LIOTHYRONINE 5 MCG TAB PO (08:36)
[2019-06-20] MEDS: LOSARTAN 50 MG TAB PO (08:36)
[2019-06-20] MEDS: APIXABAN 5 MG TABLET PO (08:36)
[2019-06-20] MEDS: TRIMETHOPRIM/SULFAMETHOX (DS) TAB PO (08:36)
[2019-06-20] MEDS: CITALOPRAM 20 MG TAB PO (08:36)
[2019-06-20] MEDS: CHLORTHALIDONE 25 MG TAB PO (08:37)
== END 2019-06-20 16:57 | disposition home health service (06) | DRG 949 ==
LOC: VRC 06-13 20:32
PROVIDERS: Physical Medicine & Rehabilitation
DX: T84.31 Breakdown (mechanical) of other bone devices, implants and grafts (principal); M86.9 Osteomyelitis, unspecified; N39.0 Urinary tract infection, site not specified; I82.409 Acute embolism and thrombosis of unspecified deep veins of unspecified lower extremity; N17.9 Acute kidney failure, unspecified; E11.621 Type 2 diabetes mellitus with foot ulcer; L97.513 Non-pressure chronic ulcer of other part of right foot with necrosis of muscle; E66.9 Obesity, unspecified; E11.51 Type 2 diabetes mellitus with diabetic peripheral angiopathy without gangrene; E11.42 Type 2 diabetes mellitus with diabetic polyneuropathy; B35.1 Tinea unguium; E78.49 Other hyperlipidemia; E03.9 Hypothyroidism, unspecified; E11.69 Type 2 diabetes mellitus with other specified complication; E06.3 Autoimmune thyroiditis; Z74.09 Other reduced mobility; Z68.38 Body mass index [BMI] 38.0-38.9, adult; I12.9 Hypertensive chronic kidney disease with stage 1 through stage 4 chronic kidney disease, or unspecified chronic kidney disease; E11.22 Type 2 diabetes mellitus with diabetic chronic kidney disease; N18.3 Chronic kidney disease, stage 3 (moderate); E11.610 Type 2 diabetes mellitus with diabetic neuropathic arthropathy; B96.20 Unspecified Escherichia coli [E. coli] as the cause of diseases classified elsewhere; D64.9 Anemia, unspecified
CPT/HCPCS: 80048; 80053; 81001; 82962; 84443; 85025; 87081; 87086; 97110; 97163; 97167; 97530; 97535; 97542